=== PATIENT | female | born 1990 | race Hispanic/Latino ===

== ENCOUNTER 2019-01-15 22:17 | Emergency (ER) | payer SELFPAY ==
[2019-01-15 22:59] LABS: #Basophils 0.1 thou/uL (0.0-0.2); #Eosinphils 0.1 thou/uL (0.0-0.7); #Lymphocytes 3.6 thou/uL (1.20-3.40); #Monocytes 0.7 thou/uL (0.11-0.59); #Neutrophils 7.3 thou/uL (1.40-6.50); %Basophils 0.8 % (0.0-1.0); %Eosinophils 0.6 % (0.0-10.0); %Lymphocytes 30.9 % (21.0-51.0); %Monocytes 5.8 % (0.0-10.0); %Neutrophils 61.8 % (42.0-75.0); Hemoglobin 13.1 g/dL (12.0-16.0); Mean Corpuscular HGB CONC 32.5 g/dL (32.0-36.0); Mean Corpuscular Volume 86.3 fL (78.0-98.0); Mean Platelet Volume 9.3 fL (7.4-10.4); Platelet Count 266 thou/uL (130-400); RBC Distribution Width 13.2 % (11.5-14.5); Red Blood Cell (RBC) Count 4.69 mill/uL (4.20-5.40); White Blood Cell (WBC) Count 11.8 thou/uL (4.8-10.8)
[2019-01-15 23:02] LABS: ALT (SGPT) 45 U/L (8-55); AST (SGOT) 27 U/L (5-34); Albumin 4.8 g/dL (3.5-5.0); Alkaline Phosphatase 82 U/L (40-150); Anion Gap 13 mmol/L (10-20); BUN (Urea Nitrogen) 7 mg/dL (7.0-18.7); Bilirubin, Total 0.6 mg/dL (0.2-1.2); Calc. Creatinine Clearance 0 mL/min (70-130); Calcium 9.9 mg/dL (7.8-10.44); Carbon Dioxide 22 mmol/L (22-29); Chloride 105 mmol/L (98-107); Estimated GFR-MDRD 90; Globulin 3.2 g/dL (2.4-3.5); Glucose 92 mg/dL (70-105); Lipase 13 U/L (8-78); Potassium 3.6 mmol/L (3.5-5.1); Sodium 136 mmol/L (136-145)
[2019-01-15 23:38] LABS: Bilirubin Negative (Negative); Blood, Urine Negative (Negative); Clarity CLEAR (Clear); Glucose, Urine (Dipstick) 100 mg/dL (Negative); Leukocyte Negative (Negative); Nitrite Negative (Negative); Protein, Urine (Dipstick) Negative (Neg-Trace); Specific Gravity, Urine 1.027 (1.002-1.036); Urobilinogen 0.2 mg/dL (0.2-1.0)
[2019-01-15 23:47] LABS: Pregnancy Test - Urine (BHCG) POSITIVE (Negative); Pregu Control Background? CLEAR/WHITE (CLR/WHITE); Pregu Control Bar Appear? YES (CONTROL BAR); Specific Gravity 1.027 (1.002-1.036)
--- NOTE | 2019-01-16 08:07 | ULT ---
PRELIMINARY REPORT/[facility]/EMERGENCY AFTER HOURS PROCEDURE: US Duplex Artery or Vein of the Abdominal and/or Reproductive Organs, Limited EXAM DATE/TIME: 01/16/2019 12:28 AM CLINICAL HISTORY: 28 years old, female; Pain and signs and symptoms; Lmp or gestational age (in weeks): 5w0d; Antepartu m complications; complicated by abdominal or pelvic pain; First trimester; ; Patien t HX: Pelvic pain, lower back pain x 1 wk, vaginal bleeding tonight TECHNIQUE: Imaging protocol: Real-time duplex ultrasound scan of the arterial or venous flow of the abdomen and/ or reproductive organs, with color Doppler flow and spectral waveform analysis. COMPARISON: No relevant prior studies available. FINDINGS: Uterus: There is intrauterine gestation. Questionable hypoechoic lesion next to the gestational sac m ay represent subchorionic hemorrhage. Uterus measures 8.6 x 4.5 cm. Endometrial thickness measures 15 mm. Ovaries: RIGHT ovary measures 2.7 x 1.9 x 2.5 cm. normal arterial and venous waveforms. No torsion. N o adnexal mass. LEFT ovary measures 2.9 x 1.9 x 3.7 cm. normal arterial and venous waveforms. No tors ion. No adnexal mass. Other findings: Beta-hCG measures 1407.7. Gestational sac with mean sac diameter corresponds with est imate gestational age of 5 weeks. Yolk sac and pole are not yet visualized probably secondary t o early gestation. IMPRESSION: 1. Tiny gestational sac corresponding with estimated gestational age of 5 weeks with questionable sub chorionic hemorrhage. Followup ultrasound as clinically warranted. 2. No evidence of ovarian torsion or adnexal mass on either side. US First Trimester, Transabdominal and US , Transvaginal EXAM DATE/TIME: 01/16/2019 12:28 AM CLINICAL HISTORY: 28 years old, female; Pain and signs and symptoms; Lmp or gestational age (in weeks): 5w0d; Antepartu m complications; complicated by abdominal or pelvic pain; First trimester; ; Patien t HX: Pelvic pain, lower back pain x 1 wk, vaginal bleeding tonight TECHNIQUE: Imaging protocol: Real-time transabdominal obstetrical ultrasound of the maternal pelvis and a first trimester , less than 14 weeks 0 days, with image documentation. Transvaginal imaging was us ed for better evaluation of the fetus and adnexa. COMPARISON: No relevant prior studies available. FINDINGS: Beta HCG: Beta-hCG measures 1407.7. GESTATION: Gestation: There is intrauterine gestation. Questionable hypoechoic lesion next to the gestational sa c may represent subchorionic hemorrhage. Yolk sac and pole are not yet visualized probably seco ndary to early gestation. BIOMETRY: Estimated gestational age: Gestational sac with mean sac diameter corresponds with estimate gestation al age of 5 weeks. MATERNAL: Uterus: Uterus measures 8.6 x 4.5 cm. Endometrial thickness measures 15 mm. Cervix: Unremarkable. Right adnexa: RIGHT ovary measures 2.7 x 1.9 x 2.5 cm. normal arterial and venous waveforms. No torsi on. No adnexal mass. Left adnexa: LEFT ovary measures 2.9 x 1.9 x 3.7 cm. normal arterial and venous waveforms. No torsion . No adnexal mass. Intraperitoneal: No intraperitoneal free fluid. IMPRESSION: 1. Tiny gestational sac corresponding with estimated gestational age of 5 weeks with questionable sub chorionic hemorrhage. Followup ultrasound as clinically warranted. 2. No evidence of ovarian torsion or adnexal mass on either side. FINAL REPORT EMERGENCY AFTER HOURS PELVIC ULTRASOUND: IMPRESSION: I agree with the preliminary report provided by [facility]. 1. There is a suspected intrauterine gestational sac without identifiable pole or yolk sac. Th e gestational age based upon the mean sac diameter was 5 weeks and 0 days. Clinical age was 7 weeks a nd 1 day. Mean sac diameter was 3.4 mm. Small hypoechoic collection suspected adjacent to the gestati onal sac which may reflect a small amount of subchorionic hemorrhage related to implantation or abort ion in progress. Continued clinical and sonographic follow-up is recommended. 2. Visualized ovaries are within normal limits. Minimal free fluid is seen within the pelvis. POS: BH
== END 2019-01-16 02:18 | disposition home or self-care (01) ==
LOC: ERS 22:17
DX: O99.89 Other specified diseases and conditions complicating pregnancy, childbirth and the puerperium (principal); R10.30 Lower abdominal pain, unspecified; Z3A.01 Less than 8 weeks gestation of pregnancy
CPT/HCPCS: 36415; 76856; 80053; 81003; 81025; 83690; 84702; 85025

== ENCOUNTER 2019-02-01 12:38 | Emergency (ER) | payer MEDICAID ==
[2019-02-01 14:09] LABS: Bilirubin Negative (Negative); Blood, Urine Small (Negative); Clarity CLOUDY (Clear); Glucose, Urine (Dipstick) 100 mg/dL (Negative); Leukocyte Negative (Negative); Nitrite Negative (Negative); Protein, Urine (Dipstick) Negative (Neg-Trace); Specific Gravity, Urine 1.024 (1.002-1.036); Urobilinogen 0.2 mg/dL (0.2-1.0)
[2019-02-01 14:11] LABS: Bacteria/HPF Rare-Few HPF (None Seen); Hyaline Casts/LPF 4-6 HYALINE CAST LPF (0-3 Hyaline); Pathc Cast-AUWi Flag 0.81 (0-2.49)
[2019-02-01] MEDS ORDERED: Ondansetron ODT 4 MG TAB ONE (14:20)
[2019-02-01] MEDS ORDERED: Acetaminophen 500 MG TAB ONE (14:20)
== END 2019-02-01 14:50 | disposition home or self-care (01) ==
LOC: ERS 12:38
DX: O99.511 Diseases of the respiratory system complicating pregnancy, first trimester (principal); J06.9 Acute upper respiratory infection, unspecified; O99.89 Other specified diseases and conditions complicating pregnancy, childbirth and the puerperium; R30.0 Dysuria; Z3A.01 Less than 8 weeks gestation of pregnancy
CPT/HCPCS: 81003; 81015; 87086; 99283; Q0162

== ENCOUNTER 2019-02-11 01:59 | Emergency (ER) | payer MEDICAID ==
[2019-02-11 04:44] LABS: #Lymphocytes 1.3 thou/uL (1.20-3.40); #Monocytes 0.6 thou/uL (0.11-0.59); #Neutrophils 12.7 thou/uL (1.40-6.50); %Basophils 0.3 % (0.0-1.0); %Eosinophils 0.2 % (0.0-10.0); %Lymphocytes 8.9 % (21.0-51.0); %Neutrophils 86.6 % (42.0-75.0); Hemoglobin 13.2 g/dL (12.0-16.0); Mean Corpuscular HGB CONC 33.6 g/dL (32.0-36.0); Mean Corpuscular Hemoglobin 29.2 pg (27.0-31.0); Mean Corpuscular Volume 86.8 fL (78.0-98.0); Mean Platelet Volume 9.2 fL (7.4-10.4); Platelet Count 237 thou/uL (130-400); RBC Distribution Width 13.5 % (11.5-14.5); Red Blood Cell (RBC) Count 4.52 mill/uL (4.20-5.40); White Blood Cell (WBC) Count 14.7 thou/uL (4.8-10.8)
[2019-02-11 04:57] LABS: ALT (SGPT) 32 U/L (8-55); AST (SGOT) 25 U/L (5-34); Albumin 4.3 g/dL (3.5-5.0); Alkaline Phosphatase 81 U/L (40-150); Anion Gap 15 mmol/L (10-20); BUN (Urea Nitrogen) 9 mg/dL (7.0-18.7); Calc. Creatinine Clearance 0 mL/min (70-130); Calcium 9.1 mg/dL (7.8-10.44); Carbon Dioxide 21 mmol/L (22-29); Chloride 102 mmol/L (98-107); Estimated GFR-MDRD Greater than 90; Globulin 3.1 g/dL (2.4-3.5); Glucose 108 mg/dL (70-105); Lipase 6 U/L (8-78); Potassium 3.5 mmol/L (3.5-5.1); Protein, Total 7.4 g/dL (6.0-8.3); Sodium 134 mmol/L (136-145)
[2019-02-11 05:03] LABS: Bilirubin Negative (Negative); Blood, Urine Moderate (Negative); Clarity CLOUDY (Clear); Glucose, Urine (Dipstick) 500 mg/dL (Negative); Leukocyte Trace (Negative); Nitrite Negative (Negative); Protein, Urine (Dipstick) 30 mg/dL (Neg-Trace)
[2019-02-11 05:06] LABS: Bacteria/HPF 1+ HPF (None Seen); Pathc Cast-AUWi Flag 1.63 (0-2.49); RBC/HPF 0-3 HPF (0-3)
[2019-02-11 05:11] LABS: Hyaline Casts/LPF 0-3 HYALINE CAST LPF (0-3 Hyaline)
[2019-02-11] MEDS ORDERED: Famotidine/PF 20 mg/2ml Vial ONE (06:05)
[2019-02-11] MEDS ORDERED: Metoclopramide HCl 10 MG/2 ML VIAL ONE (06:05)
[2019-02-11] MEDS ORDERED: diphenhydrAMINE 50 MG/ML VIAL ONE (06:05)
== END 2019-02-11 10:31 | disposition home or self-care (01) ==
LOC: ERS 01:59
DX: O21.9 Vomiting of pregnancy, unspecified (principal); R19.7 Diarrhea, unspecified; O99.89 Other specified diseases and conditions complicating pregnancy, childbirth and the puerperium; Z3A.01 Less than 8 weeks gestation of pregnancy
CPT/HCPCS: 36415; 80053; 81003; 81015; 83690; 84702; 85025; 86900; 86901; 96365; 96372; 96375; J0500; J1200; J2765; S0028

== ENCOUNTER 2019-02-21 20:48 | Emergency (ER) | payer MEDICAID, OTHER ==
[2019-02-21] MEDS ORDERED: Ondansetron PF 4 MG/2 ML Vial ONE (21:29)
[2019-02-21 21:33] LABS: #Lymphocytes 1.7 thou/uL (1.20-3.40); #Monocytes 0.9 thou/uL (0.11-0.59); #Neutrophils 11.5 thou/uL (1.40-6.50); %Basophils 0.2 % (0.0-1.0); %Eosinophils 0.2 % (0.0-10.0); %Lymphocytes 12.2 % (21.0-51.0); %Monocytes 6.5 % (0.0-10.0); %Neutrophils 80.9 % (42.0-75.0); Hemoglobin 13.2 g/dL (12.0-16.0); Mean Corpuscular HGB CONC 32.5 g/dL (32.0-36.0); Mean Corpuscular Hemoglobin 28.2 pg (27.0-31.0); Mean Corpuscular Volume 86.7 fL (78.0-98.0); Mean Platelet Volume 9.2 fL (7.4-10.4); Platelet Count 245 thou/uL (130-400); RBC Distribution Width 13.3 % (11.5-14.5); Red Blood Cell (RBC) Count 4.69 mill/uL (4.20-5.40); White Blood Cell (WBC) Count 14.2 thou/uL (4.8-10.8)
[2019-02-21 21:56] LABS: ALT (SGPT) 59 U/L (8-55); AST (SGOT) 24 U/L (5-34); Albumin 4.4 g/dL (3.5-5.0); Alkaline Phosphatase 111 U/L (40-150); Anion Gap 16 mmol/L (10-20); BUN (Urea Nitrogen) 8 mg/dL (7.0-18.7); Bilirubin, Total 0.4 mg/dL (0.2-1.2); Calc. Creatinine Clearance 0 mL/min (70-130); Calcium 9.8 mg/dL (7.8-10.44); Carbon Dioxide 21 mmol/L (22-29); Chloride 101 mmol/L (98-107); Estimated GFR-MDRD Greater than 90; Globulin 3.5 g/dL (2.4-3.5); Glucose 102 mg/dL (70-105); Potassium 3.3 mmol/L (3.5-5.1); Protein, Total 7.9 g/dL (6.0-8.3); Sodium 135 mmol/L (136-145)
[2019-02-21 22:20] LABS: Bacteria/HPF 1+ HPF (None Seen); Bilirubin Negative (Negative); Blood, Urine 2+ (Negative); Clarity Turbid (Clear); Glucose, Urine (Dipstick) Greater than 1000 mg/dL (Negative); Leukocyte 500 Leu/uL (Negative); Nitrite Negative (Negative); Protein, Urine (Dipstick) 100 mg/dL (Neg-Trace); RBC/HPF Greater than 50 HPF (0-3); Urobilinogen Normal mg/dL (Less than 2); WBC/HPF Greater than 50 HPF (0-3)
[2019-02-21 22:30] LABS: Yeast-Budding None Seen HPF (None Seen)
[2019-02-21] MEDS ORDERED: cefTRIAXone\\ROCEPHIN 1 GM VIAL ONE (22:37)
--- NOTE | 2019-02-21 22:38 | ULT ---
PELVIC ULTRASOUND WITH DOPPLER: HISTORY: Pelvic pain and left lower quadrant pain. Difficulty urinating and burning with urination. Nausea. No vaginal bleeding. FINDINGS: A single liver intrauterine gestation is seen, with measurements corresponding to an estimated gestat ional age of 9 weeks 6 days and an ANGEL of 09/20/2019. heart rate measures 180 beats per minute . Apollo-rump length measures 3.4 cm. Gestational sac diameter is 3.93 cm. Yolk sac is 0.49 cm. Both ovaries have a normal appearance and demonstrate flow. Bilateral ureteral jets are present with in the urinary bladder. No free fluid is seen in the pelvis. IMPRESSION: Single live intrauterine of 9 weeks 6 days estimated gestational age and estimated date of delivery of 09/20/2009. POS: RICHELLE
[2019-02-21] MEDS ORDERED: Acetaminophen 500 MG TAB ONE (22:47)
== END 2019-02-21 23:34 | disposition home or self-care (01) ==
LOC: ERS 20:48
DX: O23.41 Unspecified infection of urinary tract in pregnancy, first trimester (principal); Z3A.10 10 weeks gestation of pregnancy
CPT/HCPCS: 76856; 80053; 81003; 81015; 85025; 87086; 93976; 96361; 96365; 96375; J0696; J2405

== ENCOUNTER 2019-02-25 16:37 | Emergency (ER) | payer OTHER ==
[2019-02-25] MEDS ORDERED: Morphine 4 MG/ML VIAL ONE (17:11)
[2019-02-25 17:20] LABS: #Basophils 0.1 thou/uL (0.0-0.2); #Eosinphils 0.1 thou/uL (0.0-0.7); #Lymphocytes 2.8 thou/uL (1.20-3.40); #Monocytes 0.4 thou/uL (0.11-0.59); #Neutrophils 6.5 thou/uL (1.40-6.50); %Basophils 0.6 % (0.0-1.0); %Eosinophils 0.8 % (0.0-10.0); %Lymphocytes 28.3 % (21.0-51.0); %Monocytes 4.1 % (0.0-10.0); %Neutrophils 66.2 % (42.0-75.0); Hemoglobin 12.9 g/dL (12.0-16.0); Mean Corpuscular HGB CONC 31.2 g/dL (32.0-36.0); Mean Corpuscular Hemoglobin 27.1 pg (27.0-31.0); Mean Corpuscular Volume 86.8 fL (78.0-98.0); Mean Platelet Volume 9.1 fL (7.4-10.4); Platelet Count 224 thou/uL (130-400); RBC Distribution Width 12.9 % (11.5-14.5); Red Blood Cell (RBC) Count 4.77 mill/uL (4.20-5.40); White Blood Cell (WBC) Count 9.8 thou/uL (4.8-10.8)
[2019-02-25 17:44] LABS: ALT (SGPT) 37 U/L (8-55); AST (SGOT) 23 U/L (5-34); Alkaline Phosphatase 100 U/L (40-150); Anion Gap 15 mmol/L (10-20); BUN (Urea Nitrogen) 8 mg/dL (7.0-18.7); Bilirubin, Total 0.3 mg/dL (0.2-1.2); Calc. Creatinine Clearance 0 mL/min (70-130); Calcium 9.9 mg/dL (7.8-10.44); Carbon Dioxide 21 mmol/L (22-29); Chloride 104 mmol/L (98-107); Estimated GFR-MDRD Greater than 90; Globulin 3.7 g/dL (2.4-3.5); Glucose 109 mg/dL (70-105); Lipase 13 U/L (8-78); Potassium 3.5 mmol/L (3.5-5.1); Protein, Total 7.7 g/dL (6.0-8.3); Sodium 136 mmol/L (136-145)
[2019-02-25 17:50] LABS: Bilirubin Negative (Negative); Blood, Urine Trace (Negative); Clarity Clear (Clear); Glucose, Urine (Dipstick) 300 mg/dL (Negative); Leukocyte Negative Leu/uL (Negative); Mucous/LPF 2+ LPF (<2+); Nitrite Negative (Negative); Protein, Urine (Dipstick) 20 mg/dL (Neg-Trace); Squamous Epithelial 0-3 HPF (0-3); Urobilinogen Normal mg/dL (Less than 2); WBC/HPF 0-3 HPF (0-3)
[2019-02-25 18:06] LABS: Bacteria/HPF None Seen HPF (None Seen)
[2019-02-25] MEDS ORDERED: Ondansetron PF 4 MG/2 ML Vial ONE (18:15)
[2019-02-25] MEDS ORDERED: diphenhydrAMINE 50 MG/ML VIAL ONE (18:18)
[2019-02-25] MEDS ORDERED: Metoclopramide HCl 10 MG/2 ML VIAL ONE (18:18)
== END 2019-02-25 19:30 | disposition home or self-care (01) ==
LOC: ERS 16:37
DX: O20.9 Hemorrhage in early pregnancy, unspecified (principal); O98.511 Other viral diseases complicating pregnancy, first trimester; B00.9 Herpesviral infection, unspecified; Z3A.10 10 weeks gestation of pregnancy
CPT/HCPCS: 51701; 80053; 81003; 81015; 83690; 84702; 85025; 87086; 87252; 96361; 96365; 96375; A4353; J1200; J2270; J2405; J2765

== ENCOUNTER 2019-04-17 18:13 | Observation (INO) | payer MEDICAID, OTHER, SELFPAY ==
[2019-04-17 19:01] LABS: #Eosinphils 0.1 thou/uL (0.0-0.7); #Lymphocytes 3.5 thou/uL (1.20-3.40); #Neutrophils 11.6 thou/uL (1.40-6.50); %Basophils 0.3 % (0.0-1.0); %Eosinophils 0.8 % (0.0-10.0); %Lymphocytes 21.7 % (21.0-51.0); %Monocytes 5.9 % (0.0-10.0); %Neutrophils 71.4 % (42.0-75.0); Hemoglobin 13.5 g/dL (12.0-16.0); Mean Corpuscular HGB CONC 34.6 g/dL (32.0-36.0); Mean Corpuscular Hemoglobin 29.5 pg (27.0-31.0); Mean Corpuscular Volume 85.3 fL (78.0-98.0); Mean Platelet Volume 9.5 fL (7.4-10.4); Platelet Count 252 thou/uL (130-400); RBC Distribution Width 12.9 % (11.5-14.5); Red Blood Cell (RBC) Count 4.58 mill/uL (4.20-5.40); White Blood Cell (WBC) Count 16.3 thou/uL (4.8-10.8)
[2019-04-17 19:22] LABS: ALT (SGPT) 19 U/L (8-55); AST (SGOT) 19 U/L (5-34); Albumin 3.9 g/dL (3.5-5.0); Alkaline Phosphatase 82 U/L (40-150); Anion Gap 15 mmol/L (10-20); BUN (Urea Nitrogen) 6 mg/dL (7.0-18.7); Bilirubin, Total 0.2 mg/dL (0.2-1.2); Calc. Creatinine Clearance 0 mL/min (70-130); Calcium 9.5 mg/dL (7.8-10.44); Carbon Dioxide 18 mmol/L (22-29); Chloride 104 mmol/L (98-107); Estimated GFR-MDRD Greater than 90; Globulin 3.5 g/dL (2.4-3.5); Glucose 128 mg/dL (70-105); Potassium 3.4 mmol/L (3.5-5.1); Protein, Total 7.4 g/dL (6.0-8.3); Sodium 134 mmol/L (136-145)
[2019-04-17] MEDS ORDERED: Meclizine HCl 25 MG TAB ONE (19:57)
[2019-04-17 20:22] LABS: Bilirubin Negative (Negative); Blood, Urine 1+ (Negative); Clarity Turbid (Clear); Glucose, Urine (Dipstick) Greater than 1000 mg/dL (Negative); Leukocyte 25 Leu/uL (Negative); Nitrite Negative (Negative); Protein, Urine (Dipstick) 20 mg/dL (Neg-Trace); Urobilinogen Normal mg/dL (Less than 2)
[2019-04-17 20:24] LABS: Bacteria/HPF 1+ HPF (None Seen)
[2019-04-17] MEDS ORDERED: Acetaminophen 325 MG TAB ONE (21:00)
[2019-04-17 22:31] LABS: Bilirubin Negative (Negative); Blood, Urine Negative (Negative); Clarity Clear (Clear); Glucose, Urine (Dipstick) 200 mg/dL (Negative); Leukocyte Negative Leu/uL (Negative); Nitrite Negative (Negative); Protein, Urine (Dipstick) Negative (Neg-Trace); Urobilinogen Normal mg/dL (Less than 2)
--- NOTE | 2019-04-17 23:46 | PDOC.FPRHP ---
- History of Present Illness Chief Complaint: near passing out History of Present Illness: 28 y/o , @18 wks gestation presented to the ED with palpitation and near syncopal event happening earlier in the evening on 04/17. Pt states she was eating dinner and had to put her head down after her heart started racing and she saw dark spots. She was dizzy, light headed, had ringing in her ears and the room was spinning. She states this has been occurring the past couple of day. She reports not drinking or eating enough the past few days. She has also felt some "tingling" in her Left extremities and weakness in her right hand present for the past X 2 days. Pt denies any vaginal bleeding, vaginal discharge, or LOF. Pt has been feeling nauseous and vomiting daily throughout this . Pt see's Dr. Anand at the [facility]. ED Course: Pt given meclizine and IVF in the ED, without resolution of dizziness. - Allergies/Adverse Reactions Allergies Allergy/AdvReac Type Severity Reaction Status Date / Time amoxicillin Allergy Verified 04/18/19 03:55 - Home Medications Medication Instructions Recorded Confirmed Type Vit37/Iron/Folic Acid 1 tablet PO DAILY 04/18/19 04/18/19 History [Prenata Chewable Tablet] - History PMHx: no known medical problems PSHx: prior emergent , appendectomy, cholecystectomy in 2018, FHx: mother: hypothyroidism, fibromyalgia, mental illnes (schizophrenia, bipolar depression); Father: DM Social: Denies drug, etoh, or tobacco use. - Review of Systems General: reports: fatigue. denies: fever/chills, night sweats Eyes: denies: eye pain, vision changes ENT: denies: nasal congestion, rhinorrhea Respiratory: denies: cough, congestion, shortness of breath Cardiovascular: reports: palpitation. denies: chest pain, edema Gastrointestinal: reports: nausea, vomiting. denies: diarrhea, constipation, abdominal pain, GI bleeding Genitourinary: denies: incontinence, dysuria, polyuria, discharge Skin: denies: rashes, lesions, jaundice Musculoskeletal: reports: arthritis/arthralgias (hip pain). denies: pain, tenderness, stiffness, swelling Neurological: reports: numbness (left sided extremiteis), weakness (right hand) , other (near syncope) - Vital signs BP: 115/72 HR: 83 RR: 22 Tmax: 98.4 Pox: 97% on RA Wt: - Physical Exam Constitutional: NAD, awake, alert and oriented, well developed HEENT: normocephalic and atraumatic, PERRLA, EOMI, conjunctiva clear, no scleral icterus, grossly normal vision, grossly normal hearing, MMM, oropharynx clear, good dention Neck: supple, FROM, trachea midline, no LAD, no JVD, no thyromegaly Chest: no-tender to palpation, no lesions Heart: RRR, normal S1/S2, no murmurs/rubs/gallops, pulses present, no edema Lungs: CTAB, no respiratory distress, good air movement, no rales/rhonchi, no wheezing, no retractions Abdomen: soft, non-tender, bowel sounds present, no masses/distention Musculoskeletal: normal structure, normal tone, ROM grossly normal Neurological: no focal deficit, CN II-XII intact, DTRs 2+ -Neurological: slight decreased sensation to Left upper and lower extremities to light touch. Skin: no rash/lesions, good turgor, capillary refill <2 seconds, no jaundice Heme/Lymphatic: no unusual bruising or bleeding, no purpura, no petechia, no LAD Psychiatric: normal mood and affect, good judgment and insight, intact recent and remote memory FMR H&P: Results - Labs Result Diagrams: 04/18/19 05:59 04/17/19 18:50 Lab results: WBC 16.3 thou/uL (4.8-10.8) H 04/17/19 18:50 Hgb 13.5 g/dL (12.0-16.0) 04/17/19 18:50 Hct 39.1 % (36.0-47.0) 04/17/19 18:50 MCV 85.3 fL (78.0-98.0) 04/17/19 18:50 Plt Count 252 thou/uL (130-400) 04/17/19 18:50 Neutrophils % 71.4 % (42.0-75.0) 04/17/19 18:50 Sodium 134 mmol/L (136-145) L 04/17/19 18:50 Potassium 3.4 mmol/L (3.5-5.1) L 04/17/19 18:50 Chloride 104 mmol/L (98-107) 04/17/19 18:50 Carbon Dioxide 18 mmol/L (22-29) L 04/17/19 18:50 BUN 6 mg/dL (7.0-18.7) L 04/17/19 18:50 Creatinine 0.62 mg/dL (0.6-1.1) 04/17/19 18:50 Glucose 128 mg/dL (70-105) H 04/17/19 18:50 Calcium 9.5 mg/dL (7.8-10.44) 04/17/19 18:50 Total Bilirubin 0.2 mg/dL (0.2-1.2) 04/17/19 18:50 AST 19 U/L (5-34) 04/17/19 18:50 ALT 19 U/L (8-55) 04/17/19 18:50 Alkaline Phosphatase 82 U/L (40-150) 04/17/19 18:50 Serum Total Protein 7.4 g/dL (6.0-8.3) 04/17/19 18:50 Albumin 3.9 g/dL (3.5-5.0) 04/17/19 18:50 Urine Ketones Negative mg/dL (Negative) 04/17/19 22:00 Urine Blood Negative (Negative) 04/17/19 22:00 Urine Nitrite Negative (Negative) 04/17/19 22:00 Ur Leukocyte Esterase Negative Ange/uL (Negative) 04/17/19 22:00 Urine RBC 4-6 HPF (0-3) A 04/17/19 19:50 Urine WBC 4-6 HPF (0-3) A 04/17/19 19:50 Ur Squamous Epith Cells 11-20 HPF (0-3) A 04/17/19 19:50 Urine Bacteria 1+ HPF (None Seen) 04/17/19 19:50 FMR H&P: A/P - Plan 28 y/o F @ 18 weeks gestation admitted to [facility] for treatment and evaluation near syncope most likely caused by mild dehydration. 1. Near syncopal event - No LOC - Decreased PO intake of fluids and food - IV hydration and encouraging more PO fluid intake - Benadryl, Reglan, Zofran to treat dizziness and nausea. 2. IUP @ 18 weeks gestation 3. Paresthesia or left upper and lower extremities - Mild difference in sensation to light touch of upper and lower extremities on left side. - Monitor for improvement 4. Leukocytosis - 16.3 WBC - Repeat CBC in AM Code Status: Full code DVT Ppx: SCD's Diet: regular diet Disposition/LOS: Stable, admitting to observation for less than 2 midnights. FMR H&P: Upper Level - Pertinent history 28 yo female who is approximately 18 weeks presents for evaluation of dizziness and feeling unwell. 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 She reports some tingling in her hands as well as her left lower extremity. Please see information technology intern note above for further information. General: Female appears stated age, NAD HEENT: Moist mucous membranes CV: Regular rate and regular rhythm, no murmurs Respiratory: CTA-bilaterally Abdomen: Soft, nontender, no distention Normoactive BS Extremities: Moving all four symmetrically. No edema Neuro: No focal deficits. Subjective paresthesias to LLE. WNL strength testing Psych: A&O x3. - Plan Date/Time: 04/17/19 4190 I, Coy Arenas MD, have evaluated this patient and agree with findings/ plan as outlined by information technology intern resident. Pertinent changes/additions are listed here. 1. Dehydration - Likely secondary to nausea associated with - IVF as needed - Encourage PO intake 2. Dizziness - Encouraged to obtain compression stockings and take more frequent breaks at work - Monitor for symptom return 3. Leukocytosis - Unknown etiology - Repeat CBC in AM 4. Hyponatremia - Could be due to volume depletion - Repeat in AM 5. , 2nd Trimester - Continue vitamin - Continue routine care and outpatient visits PCP: Dr. Anand at [facility] CODE STATUS: FULL CODE Disposition: Stable, admit for observation services for IVF and monitoring. Addendum - Attending - Attending Attestation Date/Time: 04/19/19 0751 I personally evaluated the patient and discussed the management with Drs. Lopez and Deepa I agree with the History, Examination, Assessment and Plan documented above with any addition or exceptions noted below. Pt also endorses headaches and tinnitus x 2-3d that coincides with the onset of tingling of legs. She also describes tingling of the hands when she sleeps at night. 1. Symptoms suspicious for atypical migraine. -Treat with reglan and benadryl -BP normotensive. Low concern for hypertensive disorder 2. Near syncope -Suspect related to long periods of time on her feet and mild dehydration -Encouraged frequent work breaks and trial of compression stockings when at work -EKG reassuring -Consider echo if this symptoms persist despite conservative treatment 3. Mild dehydration -IVF Dispo: Anticipate < 2midnight stay.
[2019-04-18] MEDS ORDERED: Metoclopramide HCl 10 MG/2 ML VIAL IVP SCH (03:34)
[2019-04-18] MEDS ORDERED: Ondansetron ODT 4 MG TAB PO PRN (03:34)
[2019-04-18] MEDS ORDERED: Acetaminophen 325 MG TAB PO PRN (03:34)
[2019-04-18] MEDS ORDERED: diphenhydrAMINE 25 MG in Sodium Chloride 0.9% 50 ML IVPB SCH (03:34)
[2019-04-18] MEDS: Sodium Chloride 0.9% 1,000 ML IV SCH ×2 (04:14→16:08)
[2019-04-18 06:15] LABS: #Basophils 0.1 thou/uL (0.0-0.2); #Eosinphils 0.2 thou/uL (0.0-0.7); #Lymphocytes 4.1 thou/uL (1.20-3.40); #Neutrophils 10.2 thou/uL (1.40-6.50); %Basophils 0.4 % (0.0-1.0); %Eosinophils 1.3 % (0.0-10.0); %Lymphocytes 26.3 % (21.0-51.0); %Monocytes 6.4 % (0.0-10.0); %Neutrophils 65.5 % (42.0-75.0); Hemoglobin 11.7 g/dL (12.0-16.0); Mean Corpuscular HGB CONC 32.6 g/dL (32.0-36.0); Mean Corpuscular Hemoglobin 28.2 pg (27.0-31.0); Mean Corpuscular Volume 86.4 fL (78.0-98.0); Mean Platelet Volume 9.5 fL (7.4-10.4); Platelet Count 214 thou/uL (130-400); RBC Distribution Width 12.9 % (11.5-14.5); Red Blood Cell (RBC) Count 4.17 mill/uL (4.20-5.40); White Blood Cell (WBC) Count 15.5 thou/uL (4.8-10.8)
[2019-04-18] MEDS ORDERED: Prenatal Vitamin 1 TAB PO SCH (09:00)
[2019-04-18] MEDS ORDERED: Sodium Chloride 0.9% 500 ML IV SCH (11:15)
[2019-04-18 14:13] VITALS: BMI 43.4
[2019-04-18 17:20] VITALS: BP 114/68; TEMP 98.8
== END 2019-04-18 17:55 | disposition home or self-care (01) ==
LOC: ERS 18:13 → 3SW 23:50
PROVIDERS: ADMIT Student in an Organized Health Care Education/Training Program; ATTEND Student in an Organized Health Care Education/Training Program
DX: O99.89 Other specified diseases and conditions complicating pregnancy, childbirth and the puerperium (principal); R55 Syncope and collapse; R42 Dizziness and giddiness; R20.2 Paresthesia of skin; O99.282 Endocrine, nutritional and metabolic diseases complicating pregnancy, second trimester; E86.0 Dehydration; E87.1 Hypo-osmolality and hyponatremia; O99.112 Other diseases of the blood and blood-forming organs and certain disorders involving the immune mechanism complicating pregnancy, second trimester; D72.829 Elevated white blood cell count, unspecified; Z3A.18 18 weeks gestation of pregnancy; Z88.1 Allergy status to other antibiotic agents
CPT/HCPCS: 36415; 51701; 80053; 81003; 81015; 85025; 93005; 96360; 96361; 96365; 96375; A4353; G0378; J1200; J2765; J8597

== ENCOUNTER 2019-08-06 15:32 | Observation (INO) | payer OTHER ==
[2019-08-06] MEDS ORDERED: hydrALAZINE 20 MG/ML VIAL SLOW IVP PRN (16:19)
--- NOTE | 2019-08-06 16:45 | PDOC.FPROB ---
FMR OB H&P: HPI - History of Present Illness Chief Complaint: elevated BP and BG History of Present Illness: 28yo @ 33.6 by 8.2wk sono complicated by genital herpes and A2GDM presents from [facility] for elevated BP and BG. Pt was seen this AM at [facility] and found to have elevated BG 2 hour post prandial at 148 and elevated diastolic BP of 90 on 2 separate readings. Pt with known A2GDM on metformin but admits to missing approx 2 doses per week. Pt checks BG fasting and states is in 70s-80s, 2 hour post-pradials of 120s with occasionally to 140s. Pt states she checks BP at home and systolic is usually in 120s, unsure of diastolic. Pt endorses good movement, no LOF, vaginal bleeding, vaginal discharge. Does endorse occasional PHILLIPS, no vision changes, PHILLIPS is similar to previous PHILLIPS outside and relieved with Tylenol. Denies any fever, chills, CP, SOB, RUQ pain. Pt also endorses lower abdominal pain for past 1-2 weeks. Worse with movement, resolved with rest. Sharp stabbing sensation, mostly originating in lower abdominal/pelvic region, occasionally radiating to back. Not consistent in nature. Tried Tylenol with mild relief. Primary Care Physician: INGRID Anand FMR OB H&P: Current - Care : 3 Para: 1011 Gestational age: 33.6 Due date: 09/18/19 Dating Criteria: 8.2wk sono - OB Labs Blood type: O RH: positive Antibody Screen: negative HIV: negative RPR: negative HepBsAg: negative Rubella: immune Quad screen: unknown (declined) Gonorrhea: negative Chlamydia: negative Pap Smear: NILM 1 hour gtt: 191 A1c: 5.6 H&H: 13.3/38.9 Platelets: 253 Additional labs: HSV Positive Previous Ur Pr/Cr .138 Cr 0.45 24 hr Protein 270 - Anatomy Survey Anatomy survey: Normal anatomy survey although limited by position and maternal body habitus FMR OB H&P: History - Past Medical History PMH: Genital Herpes, active lesion, not on ppx at this time - OB History OB History: previous LTCS 1 spont AB - SUPERINTENDENT METER TESTS History SUPERINTENDENT METER TESTS History: None - Surgical History Sx History: Chloe appey - Social History Social History: Denies tob, illicits, EtOH - Family History Family History: HTN, DM FMR OB H&P: Medications - Current Home Medications: Medication Instructions Recorded Confirmed Type Acetaminophen [Tylenol Regular 650 mg PO Q4H PRN tab 08/07/19 Rx Strength] Vit37/Iron/Folic Acid 1 tablet PO DAILY #30 tab.chew 08/07/19 Rx [Prenata Chewable Tablet] metFORMIN [Glucophage] 500 mg PO BID-WM #60 tab 08/07/19 Rx Allergies/Adverse Reactions: Allergies Allergy/AdvReac Type Severity Reaction Status Date / Time amoxicillin Allergy Hives Verified 08/06/19 16:09 FMR OB H&P: ROS - Review of Systems General: denies: fever/chills, weight/appetite/sleep changes, fatigue Eyes: denies: vision changes, scotomas, floaters ENT: denies: nasal congestion Cardiovascular: reports: edema (chronic throughout ). denies: chest pain, palpitation Respiratory: denies: cough, congestion, shortness of breath Gastrointestinal: reports: abdominal pain (lower abdominal pain as described in HPI). denies: nausea, vomiting, diarrhea, constipation Genitourinary (Female): denies: incontinence, dysuria, vaginal discharge, vaginal pain, contractions, vaginal pressure Neurologic: denies: weakness Integumentary: denies: rash FMR OB H&P: Vital Signs - Maternal Vital signs: BP 126/76, HR 123, T 98.4, RR 18 - Heart Tones Baseline: 140 (reactive) Variability: moderate Acceleration: present Deceleration: absent Category: category 1 [place] contractions every: sparse FMR OB H&P: Physical Exam - Physical Exam General: NAD, awake, alert and oriented (lying comfortably in bed) HEENT: MMM Neck: supple Heart: RRR, normal S1/S2, no murmurs/rubs/gallops, pulses present, other (1+ non -pitting edema to ankles, pulses 2+ dorsalis pedis) General: CTAB, no respiratory distress, good air movement, no rales/rhonchi, no wheezing Abdomen: soft, gravid, bowel sound present, other (mildly TTP over BL lower abdomen, no rebound or guarding. Worse with positional changes.) Musculoskeletal: normal gait and station Neurological: no focal deficit Skin: no rash Lymphatic: no unusual bruising or bleeding Psychiatric: intact recent and remote memory, good judgement and insight, normal mood and affect FMR OB H&P: A/P - Problem List (1) Gestational diabetes Current Visit: Yes Status: Acute Code(s): O24.419 - GESTATIONAL DIABETES MELLITUS IN , UNSP CONTROL Qualifiers: Gestational diabetes mellitus control: oral hypoglycemic-controlled Trimester: third trimester Qualified Code(s): O24.415 - Gestational diabetes mellitus in , controlled by oral hypoglycemic drugs (2) Elevated BP without diagnosis of hypertension Current Visit: Yes Status: Acute Code(s): R03.0 - ELEVATED BLOOD-PRESSURE READING, W/O DIAGNOSIS OF HTN (3) Genital herpes affecting Current Visit: Yes Status: Chronic Code(s): O98.319 - OTH INFECT W SEXL MODE OF TRANSMISS COMP PREG, UNSP TRI; A60.09 - HERPESVIRAL INFECTION OF OTHER UROGENITAL TRACT Qualifiers: Trimester: third trimester Qualified Code(s): O98.313 - Other infections with a predominantly sexual mode of transmission complicating , third trimester; A60.09 - Herpesviral infection of other urogenital tract (4) Current Visit: Yes Status: Acute Qualifiers: Weeks of gestation: 34 weeks Qualified Code(s): Z3A.34 - 34 weeks gestation of Disposition: 28yo @ 33.6 by 8.2wk sono complicated by genital herpes and A2GDM presents from [facility] for elevated BP and BG. #Elevated BP at clinic - H/o "white coat HTN," ambulatory readings SBP 120s per pt - Diastolic BP 90 x2 in clinic today - Previous PreE labs negative with Pr/Cr 0.138, AST 23, Plt 262, Cr 0.45 - Initial BP 126/76. Will cont to monitor with serial BP monitoring - Cat 1 strip, accels, no deccels, baseline 140, moderate variability, sparse contractions - Pre E labs ordered, including CBC, CMP, UA, Ur Pr and Cr - monitor BPs overnight #A2GDM with elevated PP BG at clinic - Failed 2hr GTT - On metformin 500mg daily, admits to missing 1-2 doses per week - Pt states fasting BG 70s-80s and PP 120s-140s but has not brought log in for clinic visits. BG elevated to 148 today - Will admit for BG monitoring and appropriate medication titration #Third Trimester - @ 33.6 by 8.2wk sono - MFM recs of delivery at 38-39wks, desires rLTCS #Genital Herpes - Will need ppx at 36wks - Plan for rLTCS Dispo: Admit to antepartum obs for BG monitoring. PreE labs pending. Monitor BG and BP. Anticipate hospitalization <48hrs. Discussion: Date/Time: 08/06/19 9298 This H&P was discussed with Dr. Guadalupe and Dr. Suárez who agree with the above documentation and plan. Signature: I have evaluated the above H&P and made edits to the communications marketing intern resident note as indicated. In brief this is a 28 yo at 33.6 WGA with complicated by HSV1, A2GDM, Elevated BPs w/o diagnosis of gHTN, and depression. She has been noncompliant with metformin as well as logging blood sugars. She will be admitted for blood glucose monitoring and med titration. Addendum - Attending - Attending Attestation Date/Time: 08/07/19 4002 I personally evaluated the patient and discussed the management with Dr. Jamey Mullen on 08/06/2019 I agree with the History, Examination, Assessment and Plan documented above with any addition or exceptions noted below - 28 yo @ 33.6 weeks with A2 DM sent from clinic secondary to elevated BP as well as uncontrolled BG. (+) FM. Denies any ctx, LOF, VB. Afebrile VSS. Exam repeated by me and agree with resident's findings. A/P: 1) IUP @33.6 weeks with A2 DM - will place in obs; monitor fasting and 2 hour postprandial glucoses. Increase metformin to BID, 2) Elevated BP - will check Pre-E labs and monitor serial BP
[2019-08-06] MEDS ORDERED: Acetaminophen 325 MG TAB PO PRN (17:13)
[2019-08-06 17:46] LABS: Bilirubin Negative (Negative); Blood, Urine Trace (Negative); Glucose, Urine (Dipstick) 200 mg/dL (Negative); Leukocyte 500 Leu/uL (Negative); Nitrite Negative (Negative); Protein, Urine (Dipstick) 30 mg/dL (Neg-Trace); Urobilinogen Normal mg/dL (Less than 2)
[2019-08-06 17:52] LABS: Clarity Slightly Cloudy (Clear)
[2019-08-06 17:55] LABS: Bacteria/HPF 2+ HPF (None Seen); Creatinine, Urine 117.11 mg/dL (47-110); RBC/HPF 0-3 HPF (0-3)
[2019-08-06 17:56] LABS: Urine Culture Reflex No No
[2019-08-06 17:58] LABS: Hemoglobin 12.3 g/dL (12.0-16.0); Mean Corpuscular Hemoglobin 25.7 pg (27.0-31.0); Mean Platelet Volume 11.5 fL (7.4-10.4); Platelet Count 183 thou/uL (130-400); RBC Distribution Width 14.2 % (11.5-14.5); White Blood Cell (WBC) Count 12.9 thou/uL (4.8-10.8)
[2019-08-06] MEDS ORDERED: metFORMIN 500 MG TAB PO SCH (18:15)
[2019-08-06 18:38] LABS: HIV (1/2) Antibody/Antigen Non-Reactive (NonReactive); HIV 1/2 INDEX 0.08 S/CO (<1.00)
[2019-08-06 18:38] LABS: ALT (SGPT) 20 U/L (8-55); AST (SGOT) 27 U/L (5-34); Albumin 3.3 g/dL (3.5-5.0); Alkaline Phosphatase 320 U/L (40-110); Anion Gap 15 mmol/L (10-20); BUN (Urea Nitrogen) 5 mg/dL (7.0-18.7); Bilirubin, Total 0.5 mg/dL (0.2-1.2); Calc. Creatinine Clearance 208 mL/min (70-130); Carbon Dioxide 17 mmol/L (22-29); Chloride 106 mmol/L (98-107); Estimated GFR-MDRD Greater than 90; Glucose 75 mg/dL (70-105); Potassium 3.7 mmol/L (3.5-5.1); Protein, Total 6.3 g/dL (6.0-8.3); Sodium 134 mmol/L (136-145)
[2019-08-06 18:39] LABS: Syphilis Antibody Nonreactive (Nonreactive); Syphilis Antibody Index 0.03 S/CO (<1.00 Non-Reactive)
--- NOTE | 2019-08-07 06:45 | PDOC.OBAPN ---
FMR OB AP PN: Sub - Interval History Hospital Day: 2 Chief Complaint: None Indentification: @ 34 WGA Interval History: BPs remained WNLs overnight w/ mildly uncontrolled 2hr PP BG levels. FMR OB AP PN: Obj - Maternal Vital signs: BP: 135/74 HR: 84 RR: 18 Tmax: 98.7F Pox: 97% on RA Wt: 93.44 kg - Heart Tones Wasta contractions every: none FMR OB AP PN: Exam - Physical Exam General: NAD, awake, alert and oriented HEENT: normocephalic and atraumatic, grossly normal vision, grossly normal hearing Neck: supple, FROM Heart: RRR, normal S1/S2 General: CTAB, no respiratory distress, good air movement Abdomen: gravid Musculoskeletal: FROM in all four extremities Neurological: sensation to pain,touch and proprioception grossly normal, no focal deficit Skin: no rash, good tugor Psychiatric: intact recent and remote memory, good judgement and insight, normal mood and affect FMR OB AP PN: Data - Labs Lab results: Laboratory Results - last 24 hr 08/06/19 08/06/19 08/06/19 17:00 17:14 17:14 WBC 12.9 H RBC 4.80 Hgb 12.3 Hct 37.4 MCV 78.0 MCH 25.7 L MCHC 33.0 RDW 14.2 Plt Count 183 MPV 11.5 H Sodium 134 L Potassium 3.7 Chloride 106 Carbon Dioxide 17 L Anion Gap 15 BUN 5 L Creatinine 0.60 Estimated GFR (MDRD) Greater than 90 Glucose 75 POC Glucose 74 Calcium 9.0 Total Bilirubin 0.5 AST 27 ALT 20 Alkaline Phosphatase 320 H Serum Total Protein 6.3 Albumin 3.3 L Globulin 3.0 Albumin/Globulin Ratio 1.1 L Urine Color Urine Clarity Urine pH Ur Specific [place] Urine Protein Urine Glucose (UA) Urine Ketones Urine Blood Urine Nitrite Urine Bilirubin Urine Urobilinogen Ur Leukocyte Esterase Urine RBC Urine WBC Ur Squamous Epith Cells Urine Bacteria Hyaline Casts Urine Culture Reflexed U Random Total Protein Urine Creatinine Syphilis IgG/IgM Ab HIV 1&2 Antigen & Ab 08/06/19 08/06/19 08/06/19 17:16 17:16 17:45 WBC RBC Hgb Hct MCV MCH MCHC RDW Plt Count MPV Sodium Potassium Chloride Carbon Dioxide Anion Gap BUN Creatinine Estimated GFR (MDRD) Glucose POC Glucose Calcium Total Bilirubin AST ALT Alkaline Phosphatase Serum Total Protein Albumin Globulin Albumin/Globulin Ratio Urine Color Yellow Urine Clarity Slightly Cloudy Urine pH 5.5 Ur Specific [place] 1.015 Urine Protein 30 A Urine Glucose (UA) 200 A Urine Ketones 20 A Urine Blood Trace A Urine Nitrite Negative Urine Bilirubin Negative Urine Urobilinogen Normal Ur Leukocyte Esterase 500 A Urine RBC 0-3 Urine WBC 7-10 A Ur Squamous Epith Cells 4-6 A Urine Bacteria 2+ A Hyaline Casts 0-3 Urine Culture Reflexed No U Random Total Protein 27 H Urine Creatinine 117.11 H Syphilis IgG/IgM Ab HIV 1&2 Antigen & Ab Non-Reactive 08/06/19 08/06/19 08/07/19 17:45 21:34 06:23 WBC RBC Hgb Hct MCV MCH MCHC RDW Plt Count MPV Sodium Potassium Chloride Carbon Dioxide Anion Gap BUN Creatinine Estimated GFR (MDRD) Glucose POC Glucose 134 H 79 Calcium Total Bilirubin AST ALT Alkaline Phosphatase Serum Total Protein Albumin Globulin Albumin/Globulin Ratio Urine Color Urine Clarity Urine pH Ur Specific [place] Urine Protein Urine Glucose (UA) Urine Ketones Urine Blood Urine Nitrite Urine Bilirubin Urine Urobilinogen Ur Leukocyte Esterase Urine RBC Urine WBC Ur Squamous Epith Cells Urine Bacteria Hyaline Casts Urine Culture Reflexed U Random Total Protein Urine Creatinine Syphilis IgG/IgM Ab Nonreactive HIV 1&2 Antigen & Ab FMR OB AP PN: A/P - Problem List (1) Elevated BP without diagnosis of hypertension Current Visit: Yes Status: Acute Code(s): R03.0 - ELEVATED BLOOD-PRESSURE READING, W/O DIAGNOSIS OF HTN (2) Genital herpes affecting Current Visit: Yes Status: Chronic Code(s): O98.319 - OTH INFECT W SEXL MODE OF TRANSMISS COMP PREG, UNSP TRI; A60.09 - HERPESVIRAL INFECTION OF OTHER UROGENITAL TRACT Qualifiers: Trimester: third trimester Qualified Code(s): O98.313 - Other infections with a predominantly sexual mode of transmission complicating , third trimester; A60.09 - Herpesviral infection of other urogenital tract (3) Gestational diabetes Current Visit: Yes Status: Acute Code(s): O24.419 - GESTATIONAL DIABETES MELLITUS IN , UNSP CONTROL Qualifiers: Gestational diabetes mellitus control: oral hypoglycemic-controlled Trimester: third trimester Qualified Code(s): O24.415 - Gestational diabetes mellitus in , controlled by oral hypoglycemic drugs (4) Current Visit: Yes Status: Acute Qualifiers: Weeks of gestation: 34 weeks Qualified Code(s): Z3A.34 - 34 weeks gestation of Disposition: 28yo @ 34 WGA by 8.2wk sono complicated by genital herpes and A2GDM on metformin who presented from [facility] for elevated BP and BG at a routine follow-up appointment. #Elevated BP at clinic w/o diagnosis of HTN in pregnacy or pre-e: - known h/o "white coat HTN but had diastolic BPs of 90 x2 in clinic yesterday - Pre-E labs negative this admission with Pr/Cr 0.23 but up from first set at 0.138, AST/ALT , Plt 134, Cr 0.60 - all BPs WNLs since admission - Will continue to monitor BPs closely #uncontrolled A2GDM with elevated PP BG at clinic - Failed 2hr GTT & random BG elevated to 148 in clinic yesterday - BG checks thus far have been 70s -130s. Only abnormal read was 134 2 hours after dinner. AM fasting today of 79. - Will continue AM fasting and 2hr PP accuchecks & continue metformin at 500mg BID today w/ close follow-up at [facility] next week. - Will educate on GDM diet and continue weekly testing with MFM. #Third Trimester - @ 34 WGA by 8.2wk sono - MFM recs of delivery at 38-39wks, desires rLTCS - Continue PNVs #Genital Herpes - Will need ppx at 36wks - Plan for rLTCS Dispo: Will continue to monitor BG and BPs closely. Anticipate likely d/c home later today with close follow-up with [facility] next week. Discussion: Date/Time: 08/07/19 0642 This H&P was discussed with Dr. Suárez who agrees with the above documentation and plan. Addendum - Attending - Attending Attestation Date/Time: 08/07/19 0936 I personally evaluated the patient and discussed the management with Dr. Cohn I agree with the History, Examination, Assessment and Plan documented above with any addition or exceptions noted below - Patient without complaints. (+)FM Afebrile VSS. A/P: 1) IUP @34 weeks with A2 GDM - elevated postprandial glucoses. Continue increased dose of metformn. Discussed importance of monitoring BG for wellbeing. Patient verbalized understanding. Discussed using a phone mikey to track BG. Patient interested and will look for an mikey. Will plan to d/c home later this morning. 2) Eleavted BP- all BP normal her in hospital and Pre-E labs negative.
[2019-08-07] MEDS ORDERED: metFORMIN 500 MG TAB PO SCH (08:00)
[2019-08-07] MEDS ORDERED: Prenatal Vitamin 1 TAB PO SCH (09:00)
[2019-08-07 09:29] VITALS: BP 124/73; TEMP 99.1
--- NOTE | 2019-08-08 10:02 | DIS ---
DATE OF ADMISSION: 08/06/2019 DATE OF DISCHARGE: 08/07/2019 RESIDENT: Dr. Bren Cohn. ADMITTING ATTENDING: Dr. Malinda Suárez. DISCHARGE ATTENDING: Dr. Malinda Suárez. CONSULTS: None. PROCEDURES: None. PRIMARY DIAGNOSIS: Uncontrolled A2 gestational diabetes. SECONDARY DIAGNOSES: 1. Third trimester . 2. History of HSV-1 infection. DISCHARGE MEDICATIONS: 1. vitamins one p.o. daily. 2. Metformin 500 mg p.o. b.i.d. with meals. 3. Acetaminophen 650 mg p.o. q.4 hours p.r.n. DISCONTINUED MEDICATIONS: Metformin 500 mg p.o. q.a.m. with meals. HOSPITAL COURSE: The patient is a 28-year-old, G3, P1-0-1-1 at 33.6 weeks gestational age by 8.2 weeks' sonogram consistent with her LMP, who was sent for direct admission after being found to have an elevated blood pressure and blood glucose level at the clinic earlier that day. Of note, the patient had been noted to have a 2-hour postprandial blood glucose level of 148 and 2 elevated diastolic blood pressures in the 90s in clinic and was, therefore, sent for direct admission for a pre-eclapmsia rule-out evaluation and close monitoring of her blood pressure and blood glucose levels. On presentation to [facility], the patient's vitals were noted to be within normal limits, including her blood pressure, but a work-up for preeclampsia was initiated and a CBC, CMP, and urine protein creatinine ratio were obtained. Overnight, the patient's blood pressures remained within normal limits and, by the following morning, the patient's labwork was reviewed and was noted to be within normal limits with normal platelets at 143, liver function tests in the 20s, a urine protein creatinine ratio of 0.23, and a creatinine of 0.60. All blood pressure readings remained within normal limits for her entire hospital stay as well. Regarding her gestational diabetes, the patient's a.m. fasting levels remained controlled during her hospitalization, but her 2-hour postprandial following dinner was elevated at 134. She was, therefore, discharged on the increased dose of metformin at 500 b.i.d. and counseled again on the importance of diet and exercise in conjunction with medication adherence to control her blood sugars and instructed to follow up at clinic within 1 week of discharge. DISPOSITION: Stable. DISCHARGE INSTRUCTIONS: 1. Location: Home. 2. Diet: Consistent carb diet. 3. Activity: As tolerated, no restrictions. 4. Followup: The patient was instructed to follow up with clinic within 1 week of discharge. Job ID: [id number] MTDAlia
== END 2019-08-07 10:45 | disposition home health service (06) ==
LOC: L&D/OP 15:32 → 3SW 17:25
PROVIDERS: ADMIT Family Medicine; ATTEND Family Medicine
DX: O99.89 Other specified diseases and conditions complicating pregnancy, childbirth and the puerperium (principal); R03.0 Elevated blood-pressure reading, without diagnosis of hypertension; O98.313 Other infections with a predominantly sexual mode of transmission complicating pregnancy, third trimester; A60.09 Herpesviral infection of other urogenital tract; O24.415 Gestational diabetes mellitus in pregnancy, controlled by oral hypoglycemic drugs; O34.211 Maternal care for low transverse scar from previous cesarean delivery; O09.293 Supervision of pregnancy with other poor reproductive or obstetric history, third trimester; Z3A.33 33 weeks gestation of pregnancy; Z79.84 Long term (current) use of oral hypoglycemic drugs; Z91.14 Patient's other noncompliance with medication regimen; Z88.0 Allergy status to penicillin
CPT/HCPCS: 36415; 36416; 51701; 59025; 80053; 81001; 82570; 84156; 85027; 86780; 87389; 99285; A4353; G0378

== ENCOUNTER 2019-08-20 10:25 | Day surgery (SDC) | payer OTHER ==
[2019-08-20 10:55] VITALS: BMI 45.8
[2019-08-20] MEDS ORDERED: hydrALAZINE 20 MG/ML VIAL SLOW IVP PRN (11:00)
--- NOTE | 2019-08-20 11:06 | PDOC.FPROB ---
FMR OB H&P: HPI - History of Present Illness Chief Complaint: R/o contractions/active labor Indentification: 28yo at 35.6wks by 8.2wk US History of Present Illness: Ms. Leidy Askew is a 28 y.o at 35.6 weeks gestation that presents due to sudden onset of "abdominal pressure" this am. She was going to the restroom when she suddenly felt a 10/10 constant pressure in her pelvis that felt like she needed to go to the restroom again. Reports feeling the pressure radiate to her stomach and to her lower back. She did not take anything for the pain and that it was aggravated by walking and when she used a heating pad. Was evaluated at the clinic where she was checked and found to be having contractions 15 min apart with the cervix closed, sent over for concern for labor. While there she reports 1x episode of vomiting. Reports home BPs have been "normal." Hx of gDM, reports fasting glucose 70 and 2hr PP 110. Reports positive movement and denies any bleeding, leakage of fluid, vision changes, headaches, swelling, UTI sxs. Primary Care Physician: Dr Lexi Anand FMR OB H&P: Current - Care : 3 Para: 1010 Gestational age: 35.6 Due date: 09/18/18 Dating Criteria: 8.2wk US Total weight gain: 9lb Course/Complications: gHTN, A2gDM on Metformin, Herpes 1 starts ppx tomorrow. FMR OB H&P: Medications - Current Home Medications: Medication Instructions Recorded Confirmed Type Vit37/Iron/Folic Acid 1 tablet PO DAILY #30 tab.chew 08/07/19 08/20/19 Rx [Prenata Chewable Tablet] metFORMIN [Glucophage] 500 mg PO BID-WM #60 tab 08/07/19 08/20/19 Rx Metronidazole [metroNIDAZOLE] 500 mg PO BID #14 tab 08/20/19 Rx Miconazole 2% Vaginal Cream 1 appful VG HS #7 tube 08/20/19 Rx [Monistat 7 Vaginal 2% Cream] Allergies/Adverse Reactions: Allergies Allergy/AdvReac Type Severity Reaction Status Date / Time amoxicillin Allergy Hives Verified 08/20/19 10:53 FMR OB H&P: ROS - Review of Systems General: denies: fever/chills Eyes: denies: vision changes, double vision, scotomas, floaters FMR OB H&P: Vital Signs - Heart Tones Baseline: 130 Variability: moderate Acceleration: present Deceleration: absent Category: category 1 FMR OB H&P: Physical Exam - Physical Exam General: NAD, awake, alert and oriented HEENT: normocephalic and atraumatic, MMM, conjunctiva clear, no scleral icterus , grossly normal hearing, oropharynx clear Neck: supple, trachea midline Heart: RRR, no murmurs/rubs/gallops General: CTAB, no respiratory distress Abdomen: soft, gravid, non-tender, bowel sound present Musculoskeletal: pulses present, FROM in all four extremities, no misalignment/ asymmetry, no atrophy Neurological: no focal deficit Skin: no rash Lymphatic: no unusual bruising or bleeding Psychiatric: intact recent and remote memory, good judgement and insight, normal mood and affect - Pelvic Exam Vulva: normal hair distribution, no lesions SVE: c/t/h FMR OB H&P: A/P Disposition: 28yo at 35.6wks by 8.2wk US presents for rule out labor and preE workup sIUP with contractions - prior C/S - c/t/h in clinic with recheck 2hrs later here unchanged - Demario every 15min on monitor - Will give 1L LR - GBS swab obtained Elevated BP - 138/90 in clinic. BP elevated since 9wk visit in clinic - Baseline Urine pro/cr: 270, 296 last week - Baseline labs: Cr: 0.45, AST: 23, PLT: 262 - Will recheck urine protein/creatine, CMP and CBC - Ordered 24hr urine - Will admit to obs A2GDM - Taking Metformin BID Primary HSV 1 infection during - Ppx at 36wks Valacyclovir BMI 45 Peripartum depression Discussion: Date/Time: 08/20/19 1102 This H&P was discussed with Dr. De Paz who agrees with the above documentation and plan. Addendum - Attending - Attending Attestation Date/Time: 08/21/19 0821 I personally evaluated the patient and discussed the management with Dr. Roche I agree with the History, Examination, Assessment and Plan documented above with any addition or exceptions noted below. PT has had normal bp during her stay and evaluations. Pt given hydration and sedation. No evidence of labor or worsening si/sx of ghtn.
[2019-08-20] MEDS ORDERED: Lactated Ringer's 1,000 ML IV SCH (11:30)
[2019-08-20] MEDS ORDERED: Ondansetron PF 4 MG/2 ML Vial IVP PRN (11:42)
[2019-08-20] MEDS ORDERED: Promethazine HCl 25 MG/ML VIAL IM PRN (11:42)
[2019-08-20] MEDS ORDERED: Morphine 4 MG/ML VIAL IM SCH (11:45)
[2019-08-20] MEDS ORDERED: Ondansetron ODT 4 MG TAB SL SCH (11:45)
[2019-08-20] MEDS ORDERED: Morphine 4 MG/ML VIAL SLOW IVP SCH (11:45)
[2019-08-20 13:06] LABS: #Basophils 0.1 thou/uL (0.0-0.2); #Eosinphils 0.1 thou/uL (0.0-0.7); #Lymphocytes 3.8 thou/uL (1.20-3.40); #Monocytes 0.9 thou/uL (0.11-0.59); #Neutrophils 9.5 thou/uL (1.40-6.50); %Basophils 0.7 % (0.0-1.0); %Eosinophils 0.7 % (0.0-10.0); %Lymphocytes 26.1 % (21.0-51.0); %Monocytes 6.4 % (0.0-10.0); %Neutrophils 66.1 % (42.0-75.0); Hemoglobin 12.5 g/dL (12.0-16.0); Mean Corpuscular HGB CONC 33.1 g/dL (32.0-36.0); Mean Corpuscular Hemoglobin 25.6 pg (27.0-31.0); Mean Corpuscular Volume 77.2 fL (78.0-98.0); Mean Platelet Volume 12.3 fL (7.4-10.4); Platelet Count 198 thou/uL (130-400); RBC Distribution Width 14.8 % (11.5-14.5); Red Blood Cell (RBC) Count 4.91 mill/uL (4.20-5.40); White Blood Cell (WBC) Count 14.4 thou/uL (4.8-10.8)
[2019-08-20 13:09] LABS: ALT (SGPT) 16 U/L (8-55); AST (SGOT) 24 U/L (5-34); Albumin 3.3 g/dL (3.5-5.0); Alkaline Phosphatase 348 U/L (40-110); Anion Gap 14 mmol/L (10-20); BUN (Urea Nitrogen) 6 mg/dL (7.0-18.7); Bilirubin, Total 0.4 mg/dL (0.2-1.2); Calc. Creatinine Clearance 200 mL/min (70-130); Calcium 9.3 mg/dL (7.8-10.44); Carbon Dioxide 19 mmol/L (22-29); Chloride 106 mmol/L (98-107); Estimated GFR-MDRD Greater than 90; Globulin 3.6 g/dL (2.4-3.5); Glucose 85 mg/dL (70-105); Potassium 4.2 mmol/L (3.5-5.1); Protein, Total 6.9 g/dL (6.0-8.3); Sodium 135 mmol/L (136-145)
[2019-08-20 13:12] LABS: Bacteria/HPF 4+ HPF (None Seen); Bilirubin Negative (Negative); Blood, Urine 3+ (Negative); Clarity Turbid (Clear); Glucose, Urine (Dipstick) 300 mg/dL (Negative); Leukocyte 500 Leu/uL (Negative); Nitrite Negative (Negative); Protein, Urine (Dipstick) 100 mg/dL (Neg-Trace); Urobilinogen Normal mg/dL (Less than 2); WBC/HPF 21-50 HPF (0-3)
[2019-08-20 13:15] LABS: Urine Culture Reflex No No
[2019-08-20 14:02] LABS: Large Platelets SLIGHT; MDiff Complete? YES; Microcytosis SLIGHT = 6-15 cells (100X) (0-5/hpf); Platelet Morphology Comment Appears Adequate; Polychromasia SLIGHT = 2-3 cells (100X) (0-2/hpf)
[2019-08-20 14:06] LABS: Creatinine, Urine 184.93 mg/dL (47-110)
--- NOTE | 2019-08-20 21:28 | DIS ---
DATE OF ADMISSION: 08/20/2019 DATE OF DISCHARGE: 08/20/2019 ADMITTING DIAGNOSES: 1. Pelvic pain. 2. Elevated blood pressures with a diagnosis of gestational hypertension. DISCHARGE DIAGNOSES: 1. Pelvic pain. 2. Elevated blood pressures with a diagnosis of gestational hypertension. HOSPITAL COURSE: The patient is a 28-year-old female with an intrauterine at 35 weeks and 5 days, who presented to Labor and Delivery after being at clinic for routine visit. She was noted to have some mild range blood pressures and akira with every 15 minutes and was sent here for evaluation. The patient at that time had a closed cervix, thick. Upon presentation, patient's blood pressures have been normal. Her evaluation here included CMP, CBC, urine protein, random protein, VP3, and findings included Jyoti and bacterial vaginosis. Her spot check urine showed protein to creatinine ratio of 0.5. Her CMP was within normal limits. Her CBC showed platelets of 198,000, hemoglobin 12.5, hematocrit 37.9. Over the course of 6 hours, her blood pressures were monitored and found all be within normal limits. Her cervix has remained closed, thick, and high. Fetus is shown baseline in the 120s with moderate long-term variability, positive 15 x 15 accelerations. The patient was given IV hydration and sedation, and spent a good leather parts matcher resting. With her blood pressures remaining normal and no other findings and having room shortages, the patient is being discharged to home to complete her 24-hour urine collection. She has instructions to follow up with clinic. Her primary provider Dr. Anand, resident physician at clinic, will be organizing her scheduled and for her followup visit. The patient's antibiotics, metronidazole, and Monistat 7 have been sent to the Pharmacy. We have attempted to contact the patient by phone, but her phone is not accepting calls at this time. We will attempt again later. Job ID: [id number]
[2019-08-21] MEDS ORDERED: FLU VACC QS2019-20(6MOS UP)/PF 60 MCG/0.5 ML SYRINGE IM ONE (11:30)
== END 2019-08-20 16:15 | disposition home or self-care (01) ==
LOC: L&D/OP 10:25
PROVIDERS: ATTEND Obstetrics & Gynecology
DX: O47.03 False labor before 37 completed weeks of gestation, third trimester (principal); O13.3 Gestational [pregnancy-induced] hypertension without significant proteinuria, third trimester; O24.415 Gestational diabetes mellitus in pregnancy, controlled by oral hypoglycemic drugs; O98.513 Other viral diseases complicating pregnancy, third trimester; B00.9 Herpesviral infection, unspecified; O99.343 Other mental disorders complicating pregnancy, third trimester; F32.9 Major depressive disorder, single episode, unspecified; O34.219 Maternal care for unspecified type scar from previous cesarean delivery; Z3A.35 35 weeks gestation of pregnancy; Z79.84 Long term (current) use of oral hypoglycemic drugs; Z79.899 Other long term (current) drug therapy; Z88.0 Allergy status to penicillin
CPT/HCPCS: 36415; 36416; 80053; 81001; 82570; 84156; 85025; 87081; 87480; 87510; 87660; J2270; Q0162

== ENCOUNTER 2019-08-29 05:27 | Inpatient (IN) | payer OTHER ==
[2019-08-29] MEDS ORDERED: Ondansetron PF 4 MG/2 ML Vial IVP PRN ×3 (05:56→11:02)
[2019-08-29] MEDS ORDERED: Promethazine HCl 25 MG/ML VIAL IM PRN ×3 (05:56→07:08)
[2019-08-29] MEDS ORDERED: hydrALAZINE 20 MG/ML VIAL SLOW IVP PRN ×2 (05:56→11:02)
[2019-08-29] MEDS ORDERED: CEFAZOLIN 2 GM in Premix Bag 1 BAG IVPB SCH (06:00)
[2019-08-29] MEDS ORDERED: Bicitra 30 ML UDCUP PO SCH (06:00)
[2019-08-29 06:28] VITALS: BMI 45.2
[2019-08-29 07:03] LABS: Hemoglobin 11.8 g/dL (12.0-16.0); Mean Corpuscular Hemoglobin 25.9 pg (27.0-31.0); Mean Corpuscular Volume 78.5 fL (78.0-98.0); Mean Platelet Volume 12.2 fL (7.4-10.4); Platelet Count 155 thou/uL (130-400); RBC Distribution Width 15.2 % (11.5-14.5); Red Blood Cell (RBC) Count 4.54 mill/uL (4.20-5.40); White Blood Cell (WBC) Count 12.9 thou/uL (4.8-10.8)
[2019-08-29] MEDS ORDERED: Naloxone HCl 0.4 mg/ml Vial IVP PRN ×2 (07:08)
[2019-08-29] MEDS ORDERED: Promethazine HCl 25 MG/ML VIAL SLOW IVP PRN (07:08)
[2019-08-29] MEDS ORDERED: Promethazine HCl 25 MG SUPP PR PRN (07:08)
[2019-08-29] MEDS ORDERED: Naloxone HCl 0.4 mg/ml Vial IV PRN (07:08)
[2019-08-29] MEDS ORDERED: Ketorolac Tromethamine 30 MG/ML VIAL IVP PRN (07:08)
[2019-08-29] MEDS ORDERED: diphenhydrAMINE 50 MG/ML VIAL IVP PRN (07:08)
[2019-08-29] MEDS ORDERED: Ondansetron HCl/PF 4 MG/2 ML Vial IVP PRN (07:08)
--- NOTE | 2019-08-29 07:12 | PDOC.FPROB ---
FMR OB H&P: HPI - History of Present Illness Chief Complaint: scheduled section Indentification: 28 y/o @ 37.1 WGA by 8.2 wk sono History of Present Illness: Pt reports ctx q2min. Denies vaginal bleeding, d/c, LOF. Endorses movement. Reports vaginal itching for the past couple of days. Reports a lesion on her perineum that she thinks is an ingrown hair. Denies H/A, vision changes, SOB. Reports some RUQ pain, but reports her baby has been kicking her there. Reports BP's have mostly been below 140/90 and that her sugars have been 70s fasting and 110s-110s postprandial. Primary Care Physician: Dr. Anand - Clinic FMR OB H&P: Current - Care : 3 Para: 1011 Gestational age: 37.1 Due date: 09/18/19 Dating Criteria: 8.2 wk sono Course/Complications: A2GDM, pre-eclampsia without severe features, prior - OB Labs Blood type: O RH: positive Antibody Screen: negative HIV: negative RPR: negative HepBsAg: negative Rubella: immune Quad screen: unknown (declined) Gonorrhea: negative Chlamydia: negative Pap Smear: NILM 1 hour gtt: 191 A1c: 5.6 H&H: 13.3/38.9 Platelets: 253 Additional labs: HSV Positive Previous Ur Pr/Cr .138 24 hr Protein 270 Repeat UrPr/Cr 0.49 FMR OB H&P: History - Past Medical History PMH: Genital HSV-1, no active lesions - OB History OB History: previous LTCS 1 spont AB - 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 - Family History Family History: DM, HTN FMR OB H&P: Medications - Current Home Medications: Medication Instructions Recorded Confirmed Type Vit37/Iron/Folic Acid 1 tablet PO DAILY #30 tab.chew 08/07/19 08/29/19 Rx [Prenata Chewable Tablet] metFORMIN [Glucophage] 500 mg PO BID-WM #60 tab 08/07/19 08/29/19 Rx valACYclovir HCl [valACYclovir] 1 tab PO BID 08/29/19 08/29/19 History Allergies/Adverse Reactions: Allergies Allergy/AdvReac Type Severity Reaction Status Date / Time amoxicillin Allergy Hives Verified 08/20/19 10:53 FMR OB H&P: ROS - Review of Systems General: denies: fever/chills, weight/appetite/sleep changes Eyes: denies: vision changes, double vision ENT: denies: nasal congestion, sore throat Cardiovascular: denies: chest pain, edema Respiratory: denies: cough, shortness of breath Gastrointestinal: reports: abdominal pain. denies: nausea, vomiting Genitourinary (Female): reports: contractions. denies: vaginal discharge, vaginal bleeding Musculoskeletal: denies: pain, tenderness Neurologic: denies: numbness, weakness Integumentary: reports: itching (vaginal itching). denies: rash Hematologic/Lymphatic: denies: prolonged or excessive bleeding, enlarged lymph nodes Psychological: denies: depression, anxiety FMR OB H&P: Vital Signs - Maternal Vital signs: Vital Signs - First Documented Temp Pulse Resp BP 97.5 F L 112 H 16 137/99 H 08/29/19 05:28 08/29/19 05:28 08/29/19 05:28 08/29/19 05:28 - Heart Tones Baseline: 135 Variability: moderate Acceleration: present Deceleration: absent Category: category 1 M[place]onn[place] contractions every: 2-4 min FMR OB H&P: Physical Exam - Physical Exam General: NAD, awake, alert and oriented HEENT: MMM, conjunctiva clear, grossly normal vision, grossly normal hearing Neck: supple, FROM Heart: RRR, normal S1/S2, no murmurs/rubs/gallops, pulses present, no edema General: CTAB, no respiratory distress, good air movement, no rales/rhonchi, no wheezing Abdomen: soft, gravid Neurological: no focal deficit Skin: good tugor, capillary refill <2 seconds Lymphatic: no unusual bruising or bleeding, no purpura Psychiatric: intact recent and remote memory, good judgement and insight - Pelvic Exam Deviation from normal: small 1mm lesion that appears like an ingrown hair SVE: closed Presentation: vertex confirmed by bedside sono FMR OB H&P: Results - Labs Lab results: Laboratory Results - last 24 hr 08/29/19 06:50 WBC 12.9 H RBC 4.54 Hgb 11.8 L Hct 35.6 L MCV 78.5 MCH 25.9 L MCHC 33.0 RDW 15.2 H Plt Count 155 MPV 12.2 H FMR OB H&P: A/P - Problem List (1) Current Visit: No Status: Acute Qualifiers: Weeks of gestation: 37 weeks Qualified Code(s): Z3A.37 - 37 weeks gestation of (2) Pre-eclampsia Current Visit: Yes Status: Acute Code(s): O14.90 - UNSPECIFIED PRE-ECLAMPSIA , UNSPECIFIED TRIMESTER Qualifiers: Trimester: third trimester Qualified Code(s): O14.93 - Unspecified pre- eclampsia, third trimester (3) Gestational diabetes Current Visit: No Status: Acute Code(s): O24.419 - GESTATIONAL DIABETES MELLITUS IN , UNSP CONTROL Qualifiers: Gestational diabetes mellitus control: oral hypoglycemic-controlled Trimester: third trimester Qualified Code(s): O24.415 - Gestational diabetes mellitus in , controlled by oral hypoglycemic drugs (4) Genital herpes affecting Current Visit: No Status: Chronic Code(s): O98.319 - OTH INFECT W SEXL MODE OF TRANSMISS COMP PREG, UNSP TRI; A60.09 - HERPESVIRAL INFECTION OF OTHER UROGENITAL TRACT Qualifiers: Trimester: third trimester Qualified Code(s): O98.313 - Other infections with a predominantly sexual mode of transmission complicating , third trimester; A60.09 - Herpesviral infection of other urogenital tract (5) H/O section Current Visit: Yes Status: Acute Code(s): Z98.891 - HISTORY OF UTERINE SCAR FROM PREVIOUS SURGERY Disposition: 1. with h/o section -Admit to L&D -NPO -Consult anesthesia for spinal -Ancef pre-op 2. Pre-eclampsia without severe features Recent urine protein creatinine ratio 0.49 with prior dx of gHTN -Check CBC, CMP -BP not severe range, will monitor post- 3. A2GDM Pt on Metformin 500mg BID -Check fasting glucose this AM -Will need 2hGTT 6 weeks 4. Genital HSV-1 Primary infection during , no active lesions at this time. Pt has been on ppx for the past week -Will monitor baby closely and swab as recommended Admit to L&D and proceed with scheduled section Discussion: Date/Time: 08/29/19711 This H&P was discussed with Dr. Alegre who agrees with the above documentation and plan. Signature: Lexi Anand MD, PGY-3 Addendum - Attending - Attending Attestation Date/Time: 08/30/19912 I personally evaluated the patient and discussed the management with Dr. Anand I agree with the History, Examination, Assessment and Plan documented above with any addition or exceptions noted below. Will proceed with dank section. Glucose at goal. Will monitor closely for progression to severe preeclampsia. Lakia
[2019-08-29] MEDS ORDERED: Communication Order-Pharmacy FS SCH (07:15)
[2019-08-29] MEDS ORDERED: Oxytocin 10 UNITS/ML VIAL ONE ×3 (07:16→08:58)
[2019-08-29] MEDS ORDERED: MORPHINE 5 MG/10 ML PF VIAL ONE (07:16)
[2019-08-29] MEDS ORDERED: ePHEDrine/0.9% NaCl/PF SYRINGE 50 mg/10 ml ONE (07:16)
[2019-08-29] MEDS ORDERED: Ondansetron PF 4 MG/2 ML Vial ONE (07:16)
[2019-08-29 07:27] LABS: ALT (SGPT) 12 U/L (8-55); AST (SGOT) 18 U/L (5-34); Albumin 3.1 g/dL (3.5-5.0); Alkaline Phosphatase 328 U/L (40-110); Anion Gap 15 mmol/L (10-20); BUN (Urea Nitrogen) 7 mg/dL (7.0-18.7); Bilirubin, Total 0.4 mg/dL (0.2-1.2); Calc. Creatinine Clearance 214 mL/min (70-130); Calcium 8.8 mg/dL (7.8-10.44); Carbon Dioxide 16 mmol/L (22-29); Chloride 107 mmol/L (98-107); Estimated GFR-MDRD Greater than 90; Globulin 3.3 g/dL (2.4-3.5); Glucose 99 mg/dL (70-105); Potassium 3.9 mmol/L (3.5-5.1); Protein, Total 6.4 g/dL (6.0-8.3); Sodium 134 mmol/L (136-145)
[2019-08-29 07:44] LABS: Syphilis Antibody Nonreactive (Nonreactive); Syphilis Antibody Index 0.04 S/CO (<1.00 Non-Reactive)
[2019-08-29 07:45] LABS: HBSAg Index 0.14 S/CO (0-0.99); Hep B Surf Ag Non-Reactive S/CO (NonReactive)
[2019-08-29] MEDS ORDERED: Metoclopramide HCl 10 MG/2 ML VIAL ONE (08:35)
[2019-08-29] MEDS ORDERED: Midazolam HCl 2 mg/2 ml Vial ONE ×3 (08:41→18:45)
[2019-08-29] MEDS ORDERED: PHENYLEPHRINE-NS 100 MCG/ML 10 ML SYRINGE ONE ×3 (09:23→20:41)
[2019-08-29] MEDS ORDERED: Rocuronium Bromide 10 MG/ML (10ML VIAL) ONE (09:23)
[2019-08-29] MEDS ORDERED: Succinylcholine Chloride 20 MG/ML 10 ml SYRINGE FS ONE (09:23)
[2019-08-29] MEDS ORDERED: EPINEPHrine 1 MG/10 ML Abboject SYRINGE ONE (09:23)
[2019-08-29] MEDS ORDERED: PROPOFOL 200 MG/20 ML VIAL ONE (09:23)
[2019-08-29] MEDS ORDERED: Acetaminophen 325 MG TAB PO PRN (11:02)
[2019-08-29] MEDS ORDERED: HYDROcodone/Acetaminophen 5/325 mg Tablet PO PRN ×2 (11:02→20:00)
[2019-08-29] MEDS: Ibuprofen 800 MG TAB PO SCH ×2 (12:15→22:09)
--- NOTE | 2019-08-29 12:27 | PDOC.OPDEL ---
OB Operative/Delivery Note Delivery Dr/Surgeon: Dr. Anand with Dr. Dyer, Dr. Medina with Dr. 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 Procedure in Detail: After risks, benefits, and alternatives were explained to the patient, she gave informed consent. Pre-operative antibiotics included Cefazolin 2 gram IV. The patient was taken to the operating room and spinal anesthesia was initiated. She was placed in the supine position with a left tilt and prepped and draped in usual sterile fashion. A Pfannenstiel incision was made with a scalpel and carried down to the level of the fascia which was sharply nicked. The fascial cut was extended bilaterally with Cooley scissors. The inferior and superior edges of the cut fascial edges were elevated with Emmy clamps and the underlying rectus muscles were sharply and bluntly dissected free. The was omentum noted to be adhesed to the fascia and rectus. A vessel was noted at this transition in the midline that was cauterized with the bovie. The recti were divided digitally and retracted manually. The peritoneum was entered bluntly and retracted manually. Simona O retractor was placed. A low transverse score was made with the scalpel and the uterus was entered in the midline bluntly. Clear fluid was seen. The hysterotomy was extended manually in a cephalocaudal fashion. The was noted to be vertex and was easily delivered by fundal pressure. Mouth and nares were bulb suctioned. Cord clamped and cut and grossly normal male was handed to waiting nurse. Cord blood was obtained. Placenta was manually extracted, found to be intact with 3 vessel cord and sent for pathology. The endometrium was curetted with a dry lap. The uterus was closed with a running locking #1 Monocryl suture. Following this hemostasis was noted. The simona o retractor was removed. The abdomen was inspected and clots were removed. The hysterotomy was again noted to be hemostatic. The rectus was examined and no bleeding was noted. The adhesed omentum had one oozing area that was cauterized with the bovie. The fascia was closed with a running non-locking 0-PDS suture. The subcutaneous tissue was irrigated and there were no bleeders. The skin was undermined on the inferior aspect for better approximation. The skin was approximated with beth and a Anh wound vac was placed. All counts were correct. The patient tolerated the procedure well and was taken to the recovery room in stable condition. Estimated Blood Loss: 500 ml QBL 425 mL with 75 mL in recovery Complications: None Specimens: Cord blood sent to lab for blood type and placenta sent for pathology. Findings: Grossly normal male infant went to NICU initially for respiratory distress. Grossly normal placenta sent to pathology. Drains: Villasenor to gravity draining clear urine Attending Note: I was present and participated in the above documented procedure. Initially MD had difficulty getting through fasical layer and dissecting fasica from rectus muscles due to extensive scarring. No evidence of bleeding. Remainder of dissection to uterus complicated by continued blocking of field with omentum. Male infant delivered without complications. Passed off to nursery team. Infant's respiratory status declined and fredy called. APGARs 6/ 9. See fredy note for interventions performed. Hysterotomy closed without complications. Hemostatic. After closure patients anesthesia began to wear off. Pain was experienced. Anesthesia quickly maintained pain control. Difficulty again with fascial layer due to continued obstruction of surgical field with omentum. Some small areas of bleeding on omentum were bovied with good hemostasis noted. After fascial closure good hemostasis again noted. Skin with scaring. Undermined and beth placed for closure. Wound vac placed due to body habitus and previous wound complications. Continue routine recover. OBL as above. ABrayMD Post delivery plan: routine recovery
[2019-08-29] MEDS ORDERED: Fluconazole 100 MG TAB PO SCH (13:30)
[2019-08-29] MEDS ORDERED: Iopamidol-370 76% 500 ML 1 ML ONE (14:19)
--- NOTE | 2019-08-29 14:56 | PDOC.PP ---
Post Progress Note Post Day #: 0 Subjective: 4 HOUR POST- EXAM Pt states that her pain is controlled. She states that she is feeling warm. She denies chest pain, SOB, nausea, or vomiting. She does not report palpitations. PO intake tolerated: no Flatus: no Ambulation: no Vital Signs (12 hours) Temp Pulse Resp BP Pulse Ox 08/29/19 14:10 130 H 18 131/63 98 08/29/19 13:40 97.5 F L 122 H 18 118/64 97 08/29/19 12:40 116 H 16 123/74 97 08/29/19 11:40 98.5 F 120 H 18 127/88 96 08/29/19 05:28 97.5 F L 112 H 16 137/99 H Weight Weight 94.801 kg - Physical Examination General: NAD Cardiovascular: no m/r/g Deviation from normal: no murmurs, tachycardic Respiratory: clear to auscultation bilaterally, non-labored breathing Abdominal: + bowel sounds, lochia, no distention, appropriately TTP Fundus firm & at: umbilicus Psychiatric: A&Ox3, normal affect Result Diagrams: 08/29/19 14:45 08/29/19 06:50 Additional Labs: Post Labs Blood Type O POSITIVE 08/29/19 06:50 Hep Bs Antigen Non-Reactive S/CO (NonReactive) 08/29/19 06:50 (1) H/O section Code(s): Z98.891 - HISTORY OF UTERINE SCAR FROM PREVIOUS SURGERY Status: Acute (2) Gestational diabetes Code(s): O24.419 - GESTATIONAL DIABETES MELLITUS IN , UNSP CONTROL Status: Acute Qualifiers: Gestational diabetes mellitus control: oral hypoglycemic-controlled Trimester: third trimester Qualified Code(s): O24.415 - Gestational diabetes mellitus in , controlled by oral hypoglycemic drugs (3) Genital herpes affecting Code(s): O98.319 - OTH INFECT W SEXL MODE OF TRANSMISS COMP PREG, UNSP TRI; A60.09 - HERPESVIRAL INFECTION OF OTHER UROGENITAL TRACT Status: Chronic Qualifiers: Trimester: third trimester Qualified Code(s): O98.313 - Other infections with a predominantly sexual mode of transmission complicating , third trimester; A60.09 - Herpesviral infection of other urogenital tract - Assessment/Plan This is a 28 yo G3 now P2012 who delivered via rLTCS this morning. Term , delivered -Routine care gHTN -Currently wnl, will monitor A2GDM -ACHS accuchecks, currently appropriate Tachycardia after delivery -Uterus appropriate, normal lochia -Pending hemagram and EKG Addendum - Attending - Attending Attestation Date/Time: 08/29/19 9705 I personally evaluated the patient and discussed the management with Dr. Lopez @1600 Patient seen and examined with resident. Resident called for increased tachycardia. Patient denies any dizziness, increased abdominal pain, N/V. BP 84/52 P130 U/O 100 mL/4 hours (25 mL/hr) Lungs- CTA b/l; CV-tachycardic; Abd- soft; tender diffusely; fundus firm at umbilicus; - minimal lochia; Incision- wound vac in place dressing intact. Pre-op H/H=11.8/35.6 H/H@14:45 = 9.4/28.8. A/P: 1) POD#0 s/p Repeat with tachycardia and hypotension - QBL from xktogfo=081 mL; received 3L fluids during surgery as well as 2 doses ephedrine for low pressures. In recovery patient received 3 L fluids with pitocin and BP were 120-130/70-80s with HR 110-120. Will give additional fluid bolus and closely monitor patient. Repeat H/H @20:00.
[2019-08-29 15:03] LABS: Hemoglobin 9.4 g/dL (12.0-16.0); Mean Corpuscular HGB CONC 32.7 g/dL (32.0-36.0); Mean Corpuscular Hemoglobin 25.2 pg (27.0-31.0); Mean Platelet Volume 12.7 fL (7.4-10.4); Platelet Count 190 thou/uL (130-400); RBC Distribution Width 15.1 % (11.5-14.5); Red Blood Cell (RBC) Count 3.74 mill/uL (4.20-5.40); White Blood Cell (WBC) Count 22.2 thou/uL (4.8-10.8)
[2019-08-29] MEDS: Lactated Ringer's 1,000 ML IV SCH ×3 (15:30→21:55)
[2019-08-29] MEDS ORDERED: Lactated Ringer's 1,000 ML IV SCH (16:00)
--- NOTE | 2019-08-29 18:19 | CT ---
CT abdomen and pelvis with IV contrast HISTORY: Abdominal pain. Swelling. today. FINDINGS: Mild atelectasis at the lung bases. Small amount of free fluid throughout the upper abdomen and throughout the remainder of the abdomen. Fluid within each side of the mid to lower abdomen is of increased density. Some fluid tracks along each broad ligament without expanding hematoma apparent . Small pockets of gas from recent surgery in the anterior abdomen and anterior abdominal wall. Prominence of the uterus consistent with recent /surgery. Gallbladder is surgically absent. Small splenule adjacent to the spleen. Stomach is distended with fl uid. The decompressed IVC related to patient's fluid status. IMPRESSION: Postoperative changes consistent with recent . Blood and free fluid within the a bdomen as detailed above. No expanding hematoma. Findings were called to Dr. Lopez at 1810 hours. Code CR.
--- NOTE | 2019-08-29 18:44 | PRG ---
DATE OF SERVICE: 08/29/2019 OBGYN Preop Note DX: Suspected Hemoperitoneum, unstable vital signs TIME: 1826 hours. Please labelled this as brief INSTRUCTIONAL SERVICES LIBRARIAN consultation with Dr. Kike Gee (Family Medicine). In brief, I was just called by Dr. Gee regarding this patient. About an hour ago, Dr. Malinda Suárez called me that this patient, who was postop from a this morning from the Family Medicine Team, was noted to have newly developed tachycardia in the recovery room with a pulse in the 130s to 140s. She also had some marginal urine output. I immediately recommended a Stat CT scan of the abdomen to look for any evidence of intraabdominal/peritoneal bleeding. That scan has now been performed and it appears, per Dr. Gee and the radiologist's discussion, that there is some free fluid in the patient's abdomen concerning for blood (about 1000ml). It is unclear if the patient is actively bleeding or if this is old hemolyzed blood. Nonetheless, as the patient's pulse is still in the 120s, and blood pressure is in the 90s/50s, and also noted to have oliguria with decreased urine output despite over 9 L of IV fluids, I have recommended re-exploration STAT. I have addressed this with Anesthesia as well. Main OR aware.Getting PRBCs ordered. Dr. Gee will assemble the Family Medicine, OB, Surgical Team, and now will be in the room as surgical consult. I am ready for the OR. FM team obtaining consents. Job ID: [id number] MTDD
[2019-08-29] MEDS ORDERED: Fentanyl 100 MCG/2 ML VIAL ONE (18:45)
--- NOTE | 2019-08-29 18:48 | PDOC.BPN ---
<Terrence Lopez - Last Filed: 08/29/19 18:46> - Brief Progress Note I was paged to the bedside at around 1650. Pt was tachycardic, hypotensive, and feeling more lethargic. She began complaining of SOB, chest pain on the right with some pain in her right arm. Her abdomen was more tender at that time. Lungs were CTAB. Heart was tachycardic , regular rate, no murmurs. This exam was after an additional bolus of LR. We decided to order a STAT CT abdomen/pelvis with IV contrast. Pending results, with adjust treatment plan based on results and clinical progression. Continue O2 via nasal canula and supportive care. <Malinda Suárez - Last Filed: 08/29/19 19:41> Addendum - Attending - Attending Attestation Date/Time: 08/29/191937 I personally evaluated the patient and discussed the management with Dr. Lopez. New symptoms noted of right sided chest pain and SOB. Dr. Villegas called and case reviewed with him and recommended STAT CT abd/pelvis to evaluate for broad ligament hematoma/source of bleeding. Orders placed as well as type and cross for possible transfusion. Continue close monitoring. mixed crop and livestock farmer physician- Dr. Gee also notified of patient and will come re-evaluate.
[2019-08-29 18:52] LABS: Hemoglobin 7.1 g/dL (12.0-16.0); Mean Corpuscular HGB CONC 31.9 g/dL (32.0-36.0); Mean Corpuscular Hemoglobin 24.8 pg (27.0-31.0); Mean Corpuscular Volume 77.8 fL (78.0-98.0); Platelet Count 202 thou/uL (130-400); RBC Distribution Width 15.1 % (11.5-14.5); Red Blood Cell (RBC) Count 2.86 mill/uL (4.20-5.40); White Blood Cell (WBC) Count 20.2 thou/uL (4.8-10.8)
[2019-08-29 19:50] LABS: FSP-Qualitative Normal (Normal); Fibrinogen 376 mg/dL (253-463); INR-International Normal Ratio 1.2; PTT 22.3 SEC (22.9-36.1); Prothrombin Time 14.8 SEC (12.0-14.7)
[2019-08-29 19:51] LABS: D-Dimer Test 1.97 *mcg/mL (0.27-0.43)
[2019-08-29 19:56] LABS: Platelet Count 202 thou/uL (130-400)
[2019-08-29] MEDS ORDERED: Sodium Chloride 0.9% 20 ML ONE (20:01)
--- NOTE | 2019-08-29 20:13 | PDOC.BPN ---
- Brief Progress Note 1800 went to [facility] to check patient, was in CT about [address] Radiology called with read, stated there was fluid in the abdomen Patients vitals were 99/54, pulse 126, she had about 500ml of urine output since her c/s was finished at 0900 this morning patient was AxOx3, she was somnolent but arousable Decision was made to take patient to OR for exploratory lapartomy, R/B/A was discussed with patient and spouse Please see op notes
[2019-08-29] MEDS ORDERED: CCU Electrolyte Replacement 1 EACH IVPB ONE (20:16)
[2019-08-29] MEDS ORDERED: Ventilator Sedation Protocol 1 EACH FS SCH (20:30)
--- NOTE | 2019-08-29 20:37 | PDOC.EVN ---
Event Note - Event Note Event Note: OBGYN postop note Dictated. Quick NOte on "PEA" (unclear): Anesthesia (Dr Sofia) was concerned that the patient may have gone through a brief episode of PEA (which I dictated), but this converted quickly with epi and IV resuscitation. Max, our ROOFING SUPERVISOR, was not sure if it was PEA or if pulses were difficult to check due to her peripheral vasoconstrictioin vs true PEA. Nonetheless, CPR was NOT performed in the OR.
[2019-08-29] MEDS ORDERED: Phenylephrine HCL 10 MG/ML VIAL ONE ×2 (20:39→20:40)
--- NOTE | 2019-08-29 20:46 | CON ---
DATE OF OBGYN INTRAOP CONSULTATION: 08/29/2019 INTRAOPERATIVE SURGICAL CONSULTATION TIME OF INTERVENTION: Roughly 1930 until 2009. LOCATION: OR D. PREOPERATIVE DIAGNOSIS: The patient who is postop about 10 hours or so, who had a earlier this morning with the Family Medicine team and who now has suspected hemoperitoneum, unstable. POSTOPERATIVE DIAGNOSES: 1. The patient who is postop about 10 hours or so, who had a earlier this morning with the Family Medicine team and who now has suspected hemoperitoneum, unstable. 2. Hemoperitoneum of about 1.3 to 1.5 L. SURGEONS: 1. Dr. Kike Gee (). 2. Dr. Lexi Anand ( Resident). 3. Dr. Isaura Hutchinson ( Resident). TEXTILE MACHINERY INSTRUCTOR CONSULT: Myself. OTHER CONSULT: Dr. Reddy with General Surgery for central line placement. IV FLUIDS/BLOOD PRODUCTS: Please see anesthesia and full resident dictation for the list of the major transfusion protocol that was initiated at procedure start. FINDINGS: 1. When the abdomen open, old clotted blood of approximately 800 mL to 1000 mL was noted. 2. Entry into the abdominal pelvic cavity did not find one distinct bleeder. There was an evidence of an old hematoma at the anterior cul-de-sac, but no active bleeding. 3. Exploration of the entire pelvic and abdominal area did not find any omental or vascular bleed. 4. The hysterotomy site was intact. 5. The IP ligaments on both sides were intact. 6. Ovaries were perfused and normal. 7. No rectus muscle bleeding noted. 8. Small amount of venous bleeding on the right peritoneum by the rectus sheath noted, which was rendered hemostatic Avitene technique. PROCEDURE NARRATIVE: I arrived into the OR just as the Family Medicine Team, had gained entry into the abdomen. I was present while the pneumoperitoneum was released from the abdominal cavity. We then put a right angle retractors into the wound for retraction and all of the prior surgical sites were examined. The findings were as above. We did a detailed survey and after confirming that there was no active bleeding noted, the likely etiology of the hemoperitoneum was a vascular/venous bleed that had now tamponaded itself. Once again, we examined the abdominal pelvic area and waited for 5 minutes to see if there was a reaccumulation of blood in the anterior or posterior cul-de-sac as the blood was being given. No further re-collection of hemoperitoneum was seen. After we were all convinced that there were no distinct bleeders, we decided to close the abdomen. Again, I scrubbed out as the primary Family Medicine Team continued the abdominal closure once again. In's and out's, please see the full dictation for the units of blood and for urine output and IV fluid given. DISPOSITION: The patient will go to the ICU for recovery. IMPORTANT NOTE: According to Dr. Saez with anesthesia, the patient seemed to have gone into brief PEA for about 1-2 minutes, but this was caught very quickly and then quickly resolved with epinephrine, IV fluids, and initiation of blood products. Cardiopulmonary resuscitation was not performed. Job ID: [id number] MTDD
--- NOTE | 2019-08-29 20:49 | RAD ---
Chest one view HISTORY: Central line placement. Tip of the endotracheal catheter projects over the right mainstem bronchus. Opacity throughout the le ft lung is likely related to atelectasis, with slight leftward shift of the mediastinum. There is also low volume of the right lung. Tip of a right internal jugular central venous catheter overlies the right atrium. Metallic wire lies over the midline lower neck and may represent an esophageal probe or nasogastric t ube. IMPRESSION: Right mainstem intubation with volume loss of the left lung. Right internal jugular catheter in good radiographic position. Findings were called to Dr. Lopez at 2040 hours. Code CR.
[2019-08-29] MEDS ORDERED: Calcium Gluc 4.6 MEQ/10 ML (100 MG/ML) SLOW IVP SCH (20:54)
[2019-08-29] MEDS ORDERED: Famotidine/PF 20 mg/2ml Vial SLOW IVP SCH (21:00)
--- NOTE | 2019-08-29 21:00 | PDOC.BPN ---
- Brief Progress Note EBL is about 2500ml, there was 1.3L blood evacuated when the abdomen was entered additionally there was about 30 laps PEA event was questionable, pulse was 160 and pulse could not be palpated, resolved with epi, lasted less than 30secs Patient received 1U which was started before surgery and 2U intra-op There is 3U type and crossed Ordered one amp calcium Stat CXR ordered to re-check tube placement
[2019-08-29] MEDS ORDERED: CCU ELECTROLYTE REPLACEMENT PROTOCOL FS PRN (21:04)
[2019-08-29] MEDS ORDERED: Potassium Phosphate 9 MMOL in Sodium Chloride 0.9% 100 ML IVPB PRN (21:04)
[2019-08-29] MEDS ORDERED: Potassium Chloride 40 MEQ in Sodium Chloride 0.9% 250 ML 250 ML IVPB PRN (21:04)
[2019-08-29] MEDS ORDERED: Potassium Phosphate 12 MMOL in Sodium Chloride 0.9% 250 ML 250 ML IV PRN (21:04)
[2019-08-29] MEDS ORDERED: Potassium Phosphate 15 MMOL in Sodium Chloride 0.9% 250 ML 250 ML IV PRN (21:04)
[2019-08-29] MEDS ORDERED: Potassium Chloride 40 MEQ in Premix Bag 1 BAG IVPB PRN (21:04)
[2019-08-29] MEDS ORDERED: PHOS-NAK 1 PKT PACK PO PRN ×2 (21:04)
[2019-08-29] MEDS ORDERED: Magnesium Oxide 400 MG TAB PO PRN ×2 (21:04)
[2019-08-29] MEDS ORDERED: Potassium Chloride 20 MEQ TAB PO PRN (21:04)
[2019-08-29] MEDS ORDERED: Propofol BOLUS 1,000 MG/100 ML VIAL IV PRN (21:05)
[2019-08-29] MEDS ORDERED: fentaNYL Citrate/PF 2,000 MCG in Sodium Chloride 0.9% 60 ML IV SCH (21:05)
[2019-08-29] MEDS ORDERED: Propofol 1,000 MG/100 ML VIAL IV PRN (21:05)
[2019-08-29] MEDS ORDERED: DISCONTINUE PREVIOUS NARCOTIC PAIN MEDICATIONS AND BENZODIAZEPINES FS SCH (21:05)
[2019-08-29] MEDS ORDERED: Lorazepam 2 MG/ML VIAL SLOW IVP PRN (21:05)
[2019-08-29] MEDS ORDERED: Fentanyl BOLUS 250 ML IVPB PRN (21:05)
--- NOTE | 2019-08-29 21:12 | PDOC.OP ---
Operative Note - Operative Note Operative Note: Date of Operation 08/29/2019 Pre-operative Diagnosis: 1. Acute Hemorrhagic Shock 2. Postoperative bleeding 3. s/p section, POD#1 4. PEA, suspected 5. Pre-eclampsia without Severe Features Post-operative Diagnosis: 1. Acute Hemorrhagic Shock 2/2 post-operative intraabdominal bleeding, likely venous 2. Postoperative bleeding 3. s/p section, POD#1 4. PEA, suspected 5. Pre-eclampsia without Severe Features Procedure: exploratory laparotomy through prior pfannenstiel incision Surgeons: Dr. Gee and Dr. Cheng Villegas with NCR OPERATOR, see his dictation for his contribution Assist: Dr. Hutchinson Anesthesia: General anesthesia Consent: Risks and benefits of the procedure discussed with the patient and her and consents were obtained prior to the procedure. History: 28 y/o POD#0 s/p rLTCS indicated for pre-eclampsia without severe features and A2GDM began developing hypotension, tachycardia about 5 hours post-op. She was found to have downtrending Hb to 7.[address] abdomen was performed that showed intraabdominal fluid that was equivocal for post-op changes vs intraabdominal bleeding. The patient decompensated and went into shock. She was started on 1U PRBC's and then taken down to the operating room. Operation in detail: The patient was placed on the operating table and placed under general anesthesia with successful placement of ET tube by anesthesia. She was prepped and draped in the usual fashion. A timeout was performed by the operating room staff. The procedure was started at 1933. The beth were removed from prior pfannenstiel incision. The subcutaneous tissue was noted to have a minimal amount of blood clot and post-op changes. The suture was removed from the fascia with wilhelm scissors and the abdomen was entered. At this time a large clot burden was noted. 800mL blood was immediately evacuated from the abdomen. The patient at this time was noted to be in possible PEA per anesthesia for about 1 minute that resolved with epinephrine. Clots continued to be evacuated from the abdomen by laps and suction in the usual fashion. The hysterotomy was inspected and there was noted to be normal post-op changes around the hysterotomy with a hematoma in the serosa just superior to the bladder. This was inspected thoroughly and there was no active bleeding. The lateral gutters were then inspected and noted to be hemostatic. The posterior aspect of the uterus was inspected and suctioned free of clot and there was no active bleeding noted. The posterior gutter was cleaned out and there was no further pooling of blood. The omentum was inspected and there was blood clot on the omentum, but no active bleeding. There was noted to be a small amount of oozing from the space between the peritoneum and fascia on the patient's right. Wes was placed and this was then noted to be hemostatic. The remainder of the abdomen was inspected and there was no active bleeding noted and no pooling of blood in the abdomen. The fascia was then closed with running, non-locking 0- PDS suture. The subcutaneous tissue was approximated with interrupted 3-0 vicryl suture. The skin was approximated with beth and a Anh wound vac was placed. During the procedure a R IJ central line was placed by general surgery. See their op note for full details. EBL: 1500mL, total post- 2.5L Input: 3U PRBCs, 3U FFP, 2L NS Urine Output: 200mL Findings: No active bleed, suspected source includes ruptured hematoma, now hemostatic vs omental bleed, now hemostatic Specimen: None Disposition: post-operative care in the ICU, pulm has been consulted
--- NOTE | 2019-08-29 21:15 | RAD ---
Chest one view HISTORY: Endotracheal catheter reposition. COMPARISON: Earlier exam on the same date. FINDINGS: Tip of an endotracheal catheter now overlies the thoracic inlet. Pulmonary vasculature is engorged. Left lung has re-aerated somewhat, although bilateral lung volumes remain low. No evidence of pneumothorax. IMPRESSION: Endotracheal catheter in good radiographic position. Continued bilateral low lung volumes.
[2019-08-29] MEDS ORDERED: Calcium Gluc 4.6 MEQ/10 ML (100 MG/ML) SLOW IVP PRN (21:28)
[2019-08-29] MEDS ORDERED: Magnesium Sulfate 20 gm/500 ml 20 GM/500 ML BAG IVPB SCH (21:30)
[2019-08-29] MEDS ORDERED: Magnesium Sulfate 20 GM/WATER 500 ML BAG IVPB SCH (21:30)
[2019-08-29] MEDS ORDERED: Labetalol HCl 100 MG/20 ML VIAL SLOW IVP PRN ×2 (21:32→21:36)
--- NOTE | 2019-08-29 21:36 | PDOC.BPN ---
- Brief Progress Note Patient's BPs are trending in 160s systolic Will start magnesium as indication for delivery at 37 wks was gHTN with superimposed pre-e labetalol PRN for BPs
[2019-08-29] MEDS: Magnesium 2 GM/50 ML 2 GM in Premix Bag 1 BAG IVPB PRN ×2 (21:37→22:28)
[2019-08-29] MEDS ORDERED: Labetalol HCl 100 MG/20 ML VIAL ONE (21:40)
[2019-08-29 21:43] LABS: Actual Bicarbonate (HCO3a) 14.9 mEq/L (22-28); Base Excess (BEa) -13.1 mEq/L (-2.0 to +3.0); CO2 Tension 43.3 mmHg (35.0-45.0); Calcium, Ionized 0.96 mmol/L (1.12-1.30); Carboxyhemoglobin (COHb) 1.3 gm% (0.0-3.0); O2 Tension (PaO2) 127.2 mmHg (80.0-100.0); Potassium - ABG Lab 6.48 mmol/L (3.70-5.30)
[2019-08-29 21:45] LABS: ALV-art Gradient 175.175 (0-20); pH, Arterial 7.16 (7.35-7.45)
[2019-08-29] MEDS ORDERED: Sodium Bicarb 50 MEQ/50 ML VIAL IVP SCH (22:00)
[2019-08-29] MEDS: Docusate Calcium (SURFAK) 240 MG CAP PO SCH (22:04)
[2019-08-29 22:16] LABS: Hemoglobin 8.9 g/dL (12.0-16.0); Mean Corpuscular HGB CONC 33.1 g/dL (32.0-36.0); Mean Corpuscular Hemoglobin 28.5 pg (27.0-31.0); Mean Corpuscular Volume 86.3 fL (78.0-98.0); Red Blood Cell (RBC) Count 3.13 mill/uL (4.20-5.40); White Blood Cell (WBC) Count 22.5 thou/uL (4.8-10.8)
[2019-08-29 22:17] LABS: Mean Platelet Volume 11.6 fL (7.4-10.4); Platelet Count 145 thou/uL (130-400); RBC Distribution Width 15.8 % (11.5-14.5)
[2019-08-29] MEDS ORDERED: Magnesium Sulfate 20 GM in Dextrose 5% in Water 460 ML IV SCH ×2 (22:17→22:30)
[2019-08-29 23:25] LABS: Albumin 2.6 g/dL (3.5-5.0)
[2019-08-29 23:26] LABS: Calcium 7.6 mg/dL (7.8-10.44); Chloride 106 mmol/L (98-107); Sodium 133 mmol/L (136-145)
[2019-08-29 23:27] LABS: Globulin 2.3 g/dL (2.4-3.5); Glucose 130 mg/dL (70-105); Protein, Total 4.9 g/dL (6.0-8.3)
[2019-08-29 23:29] LABS: Anion Gap 13 mmol/L (10-20); Carbon Dioxide 21 mmol/L (22-29)
[2019-08-29 23:30] LABS: Alkaline Phosphatase 192 U/L (40-110); Calc. Creatinine Clearance 162 mL/min (70-130); Estimated GFR-MDRD 89
[2019-08-29 23:31] LABS: BUN (Urea Nitrogen) 8 mg/dL (7.0-18.7)
[2019-08-29 23:32] LABS: AST (SGOT) 33 U/L (5-34)
[2019-08-29 23:33] LABS: ALT (SGPT) 15 U/L (8-55)
[2019-08-29 23:37] LABS: Bilirubin, Total 1.2 mg/dL (0.2-1.2); Potassium 6.7 mmol/L (3.5-5.1)
[2019-08-29 23:38] LABS: Creatinine, Urine 43.51 mg/dL (47-110); Protein, Urine Random Quant Less than 10 mg/dL (1-14)
--- NOTE | 2019-08-30 00:26 | PDOC.BPN ---
- Brief Progress Note Received call from RN that potassium was 6.7. Lab previously reported potassium of 7.1 and redrew the lab. Called lab; both samples were NOT hemolyzed. Reviewed telemetry and appeared to have peaked T waves. Ordered stat EKG. Instructed nurse to give calcium gluconate. Added magnesium lab to blood in lab to assess for magnesium toxicity. Spoke w/ Dr. Guadalupe. Ordered stat BMP. Repeat potassium 5.8. magnesium was 3.5. Amp D50 and insulin given. EKG appeared in NSR without significant T-wave changes.
[2019-08-30 00:40] LABS: Hemoglobin 8.6 g/dL (12.0-16.0); Mean Corpuscular HGB CONC 34.2 g/dL (32.0-36.0); Mean Corpuscular Hemoglobin 28.8 pg (27.0-31.0); Mean Corpuscular Volume 84.2 fL (78.0-98.0); Platelet Count 124 thou/uL (130-400); RBC Distribution Width 15.5 % (11.5-14.5); Red Blood Cell (RBC) Count 2.99 mill/uL (4.20-5.40); White Blood Cell (WBC) Count 17.3 thou/uL (4.8-10.8)
[2019-08-30 00:41] LABS: Platelet Count 124 thou/uL (130-400)
[2019-08-30 00:45] LABS: Fibrinogen 319 mg/dL (253-463)
[2019-08-30 00:46] LABS: INR-International Normal Ratio 1.1; PTT 28.9 SEC (22.9-36.1); Prothrombin Time 14.2 SEC (12.0-14.7)
[2019-08-30 00:47] LABS: D-Dimer Test 3.22 *mcg/mL (0.27-0.43)
[2019-08-30 00:56] LABS: FSP-Qualitative ABNORMAL (Normal); FSP-Semiquantitative >=20 & <40 mcg/mL (Less than 5)
[2019-08-30 01:05] LABS: Anion Gap 14 mmol/L (10-20); BUN (Urea Nitrogen) 9 mg/dL (7.0-18.7); Calc. Creatinine Clearance 166 mL/min (70-130); Calcium 7.5 mg/dL (7.8-10.44); Carbon Dioxide 19 mmol/L (22-29); Chloride 107 mmol/L (98-107); Estimated GFR-MDRD Greater than 90; Glucose 94 mg/dL (70-105); Potassium 5.8 mmol/L (3.5-5.1); Sodium 134 mmol/L (136-145)
[2019-08-30] MEDS ORDERED: Dextrose 5% in Water 1,000 ML IV PRN (01:15)
[2019-08-30] MEDS ORDERED: Dextrose 50% Abboject 50 ML SYRINGE SLOW IVP PRN (01:15)
[2019-08-30] MEDS ORDERED: Dextrose 50 % In Water 50 ML SYRINGE ONE (01:26)
[2019-08-30] MEDS ORDERED: HumaLOG 300 UNITS/3 ML VIAL SC SCH (01:30)
[2019-08-30] MEDS: Lactated Ringer's 1,000 ML IV SCH ×3 (03:13→22:07)
--- NOTE | 2019-08-30 04:38 | PDOC.BPN ---
- Brief Progress Note u/o 75-150ml/hr per nursing staff BPs 100/53 soft abdomen, patient arouses at palpation of abdomen appropriate vaginal bleeding
[2019-08-30 04:41] LABS: Hemoglobin 7.8 g/dL (12.0-16.0); Mean Corpuscular HGB CONC 33.9 g/dL (32.0-36.0); Mean Corpuscular Hemoglobin 28.4 pg (27.0-31.0); Mean Corpuscular Volume 83.7 fL (78.0-98.0); Mean Platelet Volume 12.1 fL (7.4-10.4); Platelet Count 123 thou/uL (130-400); RBC Distribution Width 15.3 % (11.5-14.5); Red Blood Cell (RBC) Count 2.74 mill/uL (4.20-5.40); White Blood Cell (WBC) Count 13.8 thou/uL (4.8-10.8)
[2019-08-30] MEDS ORDERED: Lactated Ringer's 1,000 ML IV SCH (04:53)
[2019-08-30 05:03] LABS: ALT (SGPT) 14 U/L (8-55); AST (SGOT) 32 U/L (5-34); Albumin 2.3 g/dL (3.5-5.0); Alkaline Phosphatase 172 U/L (40-110); Anion Gap 12 mmol/L (10-20); BUN (Urea Nitrogen) 8 mg/dL (7.0-18.7); Bilirubin, Total 0.8 mg/dL (0.2-1.2); Calc. Creatinine Clearance 186 mL/min (70-130); Calcium 7.5 mg/dL (7.8-10.44); Carbon Dioxide 21 mmol/L (22-29); Chloride 107 mmol/L (98-107); Estimated GFR-MDRD Greater than 90; Globulin 2.3 g/dL (2.4-3.5); Glucose 96 mg/dL (70-105); Potassium 4.2 mmol/L (3.5-5.1); Protein, Total 4.6 g/dL (6.0-8.3); Sodium 136 mmol/L (136-145)
[2019-08-30] MEDS ORDERED: Magnesium Sulfate 20 GM in Dextrose 5% in Water 460 ML IV SCH (06:45)
--- NOTE | 2019-08-30 07:16 | PDOC.OBPPN ---
FMR OB PN: Subj - Interval History Hospital Day: 2 Day: 1, POD#1 s/p rLTCS and subsequent wound exploration 28 y/o ->2011 @ 37.1 WGA delivered via rLTCS @ 0817 on 08/29. Pt extubated this AM by Dr. Davenport and reports sore throat. She denies any SOB or chest pain, but does have a cough. She reports abdominal pain. Minimal lochia. Denies N/V/F/C. FMR OB PN: Obj - Maternal Vital signs: BP: 112/74 HR: 101 RR: 19 Tmax: 98.7 Pox: 99% on RA Wt: 100kg - Urine output I&O: 08/29/19 08/30/19 08/31/19 06:59 06:59 06:59 Intake Total 6095 Output Total 2170 Balance 3925 FMR OB PN: Exam - Physical Exam General: NAD, awake, alert and oriented HEENT: normocephalic and atraumatic, EOMI, MMM, conjunctiva clear, no scleral icterus, grossly normal vision, grossly normal hearing Neck: supple, FROM Heart: pulses present Deviation from normal: tachycardic, regular rhythm, no murmurs, trace pitting edema bilaterally Deviation from normal: diffuse rhonchi, worse on R side, no respiratory distress Abdomen: soft, fundus(cm) (firm) Deviation from normal: appropriately tender to palpation Musculoskeletal: FROM in all four extremities Neurological: DTR +1, no clonus, no focal deficit Skin: good tugor, capillary refill <2 seconds : bandage intact (wound vac in place with no leakage), appropriately tender Lymphatic: no unusual bruising or bleeding, no purpura Psychiatric: intact recent and remote memory, good judgement and insight FMR OB PN: Data - Labs Lab results: Laboratory Results - last 24 hr 08/29/19 08/29/19 08/29/19 06:50 06:50 06:50 WBC RBC Hgb Hct MCV MCH MCHC RDW Plt Count MPV PT INR APTT Fibrinogen Fibrin Degrad Products Fibrin Degrad Prod, Qt D-Dimer Specimen Type Puncture Site Bicarbonate Actual ABG pH ABG pCO2 ABG pO2 ABG O2 Sat Calc/Mayur ABG O2 Content ABG Base Excess ABG Hematocrit ABG Hemoglobin ABG Oxyhemoglobin ABG Carboxyhemoglobin ABG Methemoglobin ABG Deoxyhemoglobin Flaco Test A-a O2 Gradient Ionized Calcium Mode of Support Mechanical Rate Inspired O2 Tidal Volume Pressure Support PEEP or CPAP Sodium 134 L Potassium 3.9 Chloride 107 Carbon Dioxide 16 L Anion Gap 15 BUN 7 Creatinine 0.59 L Estimated GFR (MDRD) Greater than 90 Glucose 99 POC Glucose Calcium 8.8 Magnesium Total Bilirubin 0.4 AST 18 ALT 12 Alkaline Phosphatase 328 H Serum Total Protein 6.4 Albumin 3.1 L Globulin 3.3 Albumin/Globulin Ratio 0.9 L U Random Total Protein Urine Creatinine Syphilis IgG/IgM Ab Nonreactive Hep Bs Antigen Non-Reactive Blood Type Antibody Screen Crossmatch 08/29/19 08/29/19 08/29/19 06:50 14:06 14:45 WBC 22.2 H RBC 3.74 L Hgb 9.4 L Hct 28.8 L MCV 77.0 L MCH 25.2 L MCHC 32.7 RDW 15.1 H Plt Count 190 MPV 12.7 H PT INR APTT Fibrinogen Fibrin Degrad Products Fibrin Degrad Prod, Qt D-Dimer Specimen Type Puncture Site Bicarbonate Actual ABG pH ABG pCO2 ABG pO2 ABG O2 Sat Calc/Mayur ABG O2 Content ABG Base Excess ABG Hematocrit ABG Hemoglobin ABG Oxyhemoglobin ABG Carboxyhemoglobin ABG Methemoglobin ABG Deoxyhemoglobin Flaco Test A-a O2 Gradient Ionized Calcium Mode of Support Mechanical Rate Inspired O2 Tidal Volume Pressure Support PEEP or CPAP Sodium Potassium Chloride Carbon Dioxide Anion Gap BUN Creatinine Estimated GFR (MDRD) Glucose POC Glucose 121 H Calcium Magnesium Total Bilirubin AST ALT Alkaline Phosphatase Serum Total Protein Albumin Globulin Albumin/Globulin Ratio U Random Total Protein Urine Creatinine Syphilis IgG/IgM Ab Hep Bs Antigen Blood Type O POSITIVE Antibody Screen NEGATIVE Crossmatch See Detail 08/29/19 08/29/19 08/29/19 16:48 18:35 19:30 WBC 20.2 H RBC 2.86 L Hgb 7.1 L Hct 22.3 L MCV 77.8 L MCH 24.8 L MCHC 31.9 L RDW 15.1 H Plt Count 202 202 MPV 13.0 H PT 14.8 H INR 1.2 APTT 22.3 L Fibrinogen 376 Fibrin Degrad Products Normal Fibrin Degrad Prod, Qt D-Dimer 1.97 H Specimen Type Puncture Site Bicarbonate Actual ABG pH ABG pCO2 ABG pO2 ABG O2 Sat Calc/Mayur ABG O2 Content ABG Base Excess ABG Hematocrit ABG Hemoglobin ABG Oxyhemoglobin ABG Carboxyhemoglobin ABG Methemoglobin ABG Deoxyhemoglobin Flaco Test A-a O2 Gradient Ionized Calcium Mode of Support Mechanical Rate Inspired O2 Tidal Volume Pressure Support PEEP or CPAP Sodium Potassium Chloride Carbon Dioxide Anion Gap BUN Creatinine Estimated GFR (MDRD) Glucose POC Glucose 150 H Calcium Magnesium Total Bilirubin AST ALT Alkaline Phosphatase Serum Total Protein Albumin Globulin Albumin/Globulin Ratio U Random Total Protein Urine Creatinine Syphilis IgG/IgM Ab Hep Bs Antigen Blood Type Antibody Screen Crossmatch 08/29/19 08/29/19 08/29/19 21:13 22:05 22:59 WBC 22.5 H RBC 3.13 L Hgb 8.9 L Hct 27.0 L MCV 86.3 MCH 28.5 MCHC 33.1 RDW 15.8 H Plt Count 145 MPV 11.6 H PT INR APTT Fibrinogen Fibrin Degrad Products Fibrin Degrad Prod, Qt D-Dimer Specimen Type art Puncture Site rra Bicarbonate Actual 14.9 L ABG pH 7.16 L* ABG pCO2 43.3 ABG pO2 127.2 H ABG O2 Sat Calc/Mayur 98.3 H ABG O2 Content 13.9 L ABG Base Excess -13.1 L ABG Hematocrit 29.0 L ABG Hemoglobin 10.0 L ABG Oxyhemoglobin 96.9 ABG Carboxyhemoglobin 1.3 ABG Methemoglobin 0.10 ABG Deoxyhemoglobin 1.7 Flaco Test POSITIVE A-a O2 Gradient 175.175 H Ionized Calcium 0.96 L Mode of Support SIMV Mechanical Rate 16 Inspired O2 50 Tidal Volume 470 Pressure Support 10 PEEP or CPAP 5.0 Sodium 132 L 133 L Potassium 6.48 H 6.7 H* Chloride 108 H 106 Carbon Dioxide 21 L Anion Gap 13 BUN 8 Creatinine 0.78 Estimated GFR (MDRD) 89 Glucose 130 H POC Glucose Calcium 7.6 L Magnesium Total Bilirubin 1.2 AST 33 ALT 15 Alkaline Phosphatase 192 H Serum Total Protein 4.9 L Albumin 2.6 L Globulin 2.3 L Albumin/Globulin Ratio 1.1 L U Random Total Protein Urine Creatinine Syphilis IgG/IgM Ab Hep Bs Antigen Blood Type Antibody Screen Crossmatch 08/29/19 08/29/19 08/30/19 23:11 23:15 00:33 WBC 17.3 H RBC 2.99 L Hgb 8.6 L Hct 25.2 L MCV 84.2 MCH 28.8 MCHC 34.2 RDW 15.5 H Plt Count 124 L MPV 12.0 H PT INR APTT Fibrinogen Fibrin Degrad Products Fibrin Degrad Prod, Qt D-Dimer Specimen Type Puncture Site Bicarbonate Actual ABG pH ABG pCO2 ABG pO2 ABG O2 Sat Calc/Mayur ABG O2 Content ABG Base Excess ABG Hematocrit ABG Hemoglobin ABG Oxyhemoglobin ABG Carboxyhemoglobin ABG Methemoglobin ABG Deoxyhemoglobin Flaco Test A-a O2 Gradient Ionized Calcium Mode of Support Mechanical Rate Inspired O2 Tidal Volume Pressure Support PEEP or CPAP Sodium Potassium Chloride Carbon Dioxide Anion Gap BUN Creatinine Estimated GFR (MDRD) Glucose POC Glucose 150 H Calcium Magnesium Total Bilirubin AST ALT Alkaline Phosphatase Serum Total Protein Albumin Globulin Albumin/Globulin Ratio U Random Total Protein Less than 10 Urine Creatinine 43.51 L Syphilis IgG/IgM Ab Hep Bs Antigen Blood Type Antibody Screen Crossmatch 08/30/19 08/30/19 08/30/19 00:33 00:33 00:33 WBC RBC Hgb Hct MCV MCH MCHC RDW Plt Count 124 L MPV PT 14.2 INR 1.1 APTT 28.9 Fibrinogen 319 Fibrin Degrad Products ABNORMAL H Fibrin Degrad Prod, Qt >=20 & <40 H D-Dimer 3.22 H Specimen Type Puncture Site Bicarbonate Actual ABG pH ABG pCO2 ABG pO2 ABG O2 Sat Calc/Mayur ABG O2 Content ABG Base Excess ABG Hematocrit ABG Hemoglobin ABG Oxyhemoglobin ABG Carboxyhemoglobin ABG Methemoglobin ABG Deoxyhemoglobin Flaco Test A-a O2 Gradient Ionized Calcium Mode of Support Mechanical Rate Inspired O2 Tidal Volume Pressure Support PEEP or CPAP Sodium 134 L Potassium 5.8 H Chloride 107 Carbon Dioxide 19 L Anion Gap 14 BUN 9 Creatinine 0.76 Estimated GFR (MDRD) Greater than 90 Glucose 94 POC Glucose Calcium 7.5 L Magnesium 3.5 H Total Bilirubin AST ALT Alkaline Phosphatase Serum Total Protein Albumin Globulin Albumin/Globulin Ratio U Random Total Protein Urine Creatinine Syphilis IgG/IgM Ab Hep Bs Antigen Blood Type Antibody Screen Crossmatch 08/30/19 08/30/19 04:00 04:00 WBC 13.8 H RBC 2.74 L Hgb 7.8 L Hct 22.9 L MCV 83.7 MCH 28.4 MCHC 33.9 RDW 15.3 H Plt Count 123 L MPV 12.1 H PT INR APTT Fibrinogen Fibrin Degrad Products Fibrin Degrad Prod, Qt D-Dimer Specimen Type Puncture Site Bicarbonate Actual ABG pH ABG pCO2 ABG pO2 ABG O2 Sat Calc/Mayur ABG O2 Content ABG Base Excess ABG Hematocrit ABG Hemoglobin ABG Oxyhemoglobin ABG Carboxyhemoglobin ABG Methemoglobin ABG Deoxyhemoglobin Flaco Test A-a O2 Gradient Ionized Calcium Mode of Support Mechanical Rate Inspired O2 Tidal Volume Pressure Support PEEP or CPAP Sodium 136 Potassium 4.2 Chloride 107 Carbon Dioxide 21 L Anion Gap 12 BUN 8 Creatinine 0.68 Estimated GFR (MDRD) Greater than 90 Glucose 96 POC Glucose Calcium 7.5 L Magnesium Total Bilirubin 0.8 AST 32 ALT 14 Alkaline Phosphatase 172 H Serum Total Protein 4.6 L Albumin 2.3 L Globulin 2.3 L Albumin/Globulin Ratio 1.0 L U Random Total Protein Urine Creatinine Syphilis IgG/IgM Ab Hep Bs Antigen Blood Type Antibody Screen Crossmatch FMR OB PN: A/P - Problem List (1) Pre-eclampsia Current Visit: Yes Status: Acute Code(s): O14.90 - UNSPECIFIED PRE-ECLAMPSIA , UNSPECIFIED TRIMESTER Qualifiers: Trimester: third trimester Qualified Code(s): O14.93 - Unspecified pre- eclampsia, third trimester (2) Gestational diabetes Current Visit: No Status: Acute Code(s): O24.419 - GESTATIONAL DIABETES MELLITUS IN , UNSP CONTROL Qualifiers: Gestational diabetes mellitus control: oral hypoglycemic-controlled Trimester: third trimester Qualified Code(s): O24.415 - Gestational diabetes mellitus in , controlled by oral hypoglycemic drugs (3) Genital herpes affecting Current Visit: No Status: Chronic Code(s): O98.319 - OTH INFECT W SEXL MODE OF TRANSMISS COMP PREG, UNSP TRI; A60.09 - HERPESVIRAL INFECTION OF OTHER UROGENITAL TRACT Qualifiers: Trimester: third trimester Qualified Code(s): O98.313 - Other infections with a predominantly sexual mode of transmission complicating , third trimester; A60.09 - Herpesviral infection of other urogenital tract (4) H/O section Current Visit: Yes Status: Acute Code(s): Z98.891 - HISTORY OF UTERINE SCAR FROM PREVIOUS SURGERY (5) Term delivered Current Visit: Yes Status: Acute Code(s): O80 - ENCOUNTER FOR FULL-TERM UNCOMPLICATED DELIVERY (6) Hemorrhagic shock Current Visit: Yes Status: Resolved Code(s): R57.8 - OTHER SHOCK (7) Acute blood loss anemia Current Visit: Yes Status: Acute Code(s): D62 - ACUTE POSTHEMORRHAGIC ANEMIA (8) hemorrhage Current Visit: Yes Status: Resolved Code(s): O72.1 - OTHER IMMEDIATE HEMORRHAGE (9) Pulmonary edema Current Visit: Yes Status: Acute Code(s): J81.1 - CHRONIC PULMONARY EDEMA Qualifiers: Chronicity: acute Qualified Code(s): J81.0 - Acute pulmonary edema (10) Hyperkalemia Current Visit: Yes Status: Resolved Code(s): E87.5 - HYPERKALEMIA (11) Blood transfusion affecting Current Visit: Yes Status: Acute Code(s): O99.89 - OTH DISEASES AND CONDITIONS COMPL PREG/CHLDBRTH (12) Hemoperitoneum Current Visit: Yes Status: Resolved Code(s): K66.1 - HEMOPERITONEUM Disposition: Term delivered PPD#1/POD#1 s/p rLTCS -Continue PNV -Encourage breast feeding once stabilized -Monitor lochia -Encourage ambulation once stabilized -Morphine prn pain, will change to norco once tolerating PO Hemorrhagic Shock, resolved 2/2 hemorrhage with hemoperitoneum POD#1 s/p ex-lap through pfannenstiel Pt s/p MTP with 1 round given (3U PRBC, 3U FFP) -R IJ CVC in place -vital signs stabilized -Continue to monitor H/H hemorrhage 2/2 hemoperitoneum No specific bleed identified, about 1500mL blood clot evacuated from abdomen. Total blood loss suspected to be about 2.5-3L. s/p 3U PRBC and 3U FFP as above -Monitor H/H -DIC panel if concern for continued bleeding Acute Hypoxic Respiratory Failure Was intubated overnight in the ICU -Dr. Davenport with pulm has been consulted, appreciate recs -Extubated this AM, will monitor for signs of respiratory distress Pre-eclampsia with severe features Pt with pre-eclampsia without severe features on admission as indication for 37 week delivery. Post-op from ex-lap through pfannenstiel pt developed severe range BP's with 3 > 160/110. She was subsequently started on magnesium. 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 Alegre who agrees with the above documentation and plan. Signature: Lexi Anand MD, PGY-3 Addendum - Attending - Attending Attestation Date/Time: 08/30/1914 I personally evaluated the patient and discussed the management with Dr. Anand I agree with the History, Examination, Assessment and Plan documented above with any addition or exceptions noted below. POD/PPD#1 Patient in ICU. Now extubated. On room air and doing well. Reports pain to abdomen along with distension. No n/v. No flatus or BM. Lochia minimum. s/p RLTCS #2 complicated by ex lap for pp hemorrhage: Improved. Continue routine pp care. pp hemorrhage s/p MTP: If H&H and coags stable ok to transfer to floor. s/p PEA?: Unsure if true arrest. Resolved without intervention. hx of wound complication: Continue wound vac. History of hematoma with dehiscence. hx of transfusion after lap jenn: Consider bleeding disorder workup in outpatient setting. preeclampsia with severe features: asymptomatic. on mag for 24 hours. BP stable. hx of primary HSV1 at 11 wks: No active lesions at delivery. Delivered via section. hx of MDD: high risk for pp depression post op ilius: NPO. Abdominal xray pending. No N/V. ABrayMD
[2019-08-30] MEDS: Morphine 2 MG/ML SYRINGE SLOW IVP PRN ×4 (07:26→15:00)
--- NOTE | 2019-08-30 08:03 | RAD ---
EXAM: Single view of the chest HISTORY: CCU patient on ventilator with respiratory failure COMPARISON: 08/29/2019 FINDINGS: Single view of the chest shows an enlarged but stable cardiomediastinal silhouette. The en dotracheal tube and central venous catheter are unchanged in position. There is been interval placement of an NG tube which courses off the inferior aspect of the film. There is no evidence of c onsolidation, mass, or pleural effusion. The bones are unremarkable. IMPRESSION: Appropriate position of lines and tubes
--- NOTE | 2019-08-30 08:22 | CON ---
DATE OF CONSULTATION: 08/30/2019 SERVICE: Pulmonary Medicine. REASON FOR CONSULTATION: ICU patient. HISTORY OF PRESENT ILLNESS: The patient is a 28-year-old female with past medical history significant for essentially nothing. That being said, she was and developed hypertension with preeclampsia. As such, she had a scheduled section at 9 o'clock yesterday morning. Throughout the course of the day, she dropped her blood pressures and became increasingly tachycardic. Because of that, a repeat hemoglobin was performed, which demonstrated significant drop. She was taken back to the operating room, and a little over 2 L of adrian blood was removed from her belly. No specific bleed was identified. She was watched for a period of time, and subsequently closed. She was rested on a mechanical ventilator overnight while the dust settled. She cannot provide any additional elements of the history. PAST MEDICAL HISTORY: HSV, genital. PAST SURGICAL HISTORY: 1. Cholecystectomy. 2. Appendectomy. 3. section x2. SOCIAL HISTORY: Negative for alcohol, tobacco, or illicit drug use. She is . FAMILY HISTORY: Noncontributory. ALLERGIES: PENICILLINS. MEDICATIONS: List of her inpatient medications was reviewed, and multiple updates were made at this time. REVIEW OF SYSTEMS: This cannot be obtained as the patient is currently intubated and sedated. PHYSICAL EXAMINATION: VITAL SIGNS: Afebrile, pulse 101, blood pressure 112/74, respirations 19, saturation 99% on 27% FiO2, delivered with a PEEP of 5. GENERAL: The patient is intubated. She is under the influence of some sedation. With stent stimulation, she wakes up appropriately. She is following commands and moving all 4 extremities. LABORATORY DATA: WBC 13.8, hemoglobin 7.8 and gently trickling downward. Platelets 123,000. INR 1.1. PH of 7.16, pCO2 of 43, pO2 of 127 while on a PEEP of 5 and a FiO2 of 50%. Basic metabolic profile is completely unremarkable this morning with a downward trending potassium of 4.2. Liver function studies have also improved including an alkaline phosphatase of 172. IMAGING DATA: Chest x-ray demonstrates likely pleural effusion on the right, which is layering. This gives the appearance that there is slight opacification on the right. Endotracheal tube is in good position, there is a right-sided IJ central venous catheter in the right atrium. An enteric catheter courses midline below the level of the diaphragm and out of the field of view. Low lung volumes accentuate the cardiac silhouette. ASSESSMENT: 1. Acute hypoxic respiratory failure. 2. Acute blood loss anemia. 3. Hemorrhagic shock, resolved. 4. Postoperative day #1 from section with subsequent exploratory laparotomy through the Pfannenstiel incision. DISCUSSION AND PLAN: I will put the patient on a spontaneous breathing trial. If she meets criteria, extubation will be considered. I am going to minimize her IV fluids now that her hyperkalemia has resolved. I will allow her to auto-diurese. We will start spacing out the hemoglobins through time as she has not had a significant pronounced drop overnight. Critical Care will sign off if she transfers to the floor. CRITICAL CARE TIME: 30 minutes. Job ID: [id number] MTDD
[2019-08-30] MEDS ORDERED: HYDROcodone/Acetaminophen 5/325 mg Tablet PO PRN (08:23)
[2019-08-30 08:54] LABS: Hemoglobin 7.6 g/dL (12.0-16.0)
[2019-08-30] MEDS: Prenatal Vitamin 1 TAB PO SCH (09:00)
[2019-08-30] MEDS: Docusate Calcium (SURFAK) 240 MG CAP PO SCH ×2 (09:36→21:54)
[2019-08-30] MEDS ORDERED: Adacel (T-DAP) 0.5 ML SYRINGE IM ONE (11:02)
[2019-08-30] MEDS ORDERED: Acetaminophen 500 MG TAB PO PRN (12:55)
[2019-08-30] MEDS ORDERED: Polyethylene Glycol 3350 17 GM Packet PO PRN (12:56)
[2019-08-30] MEDS ORDERED: Milk Of Magnesia 30 ML UDCUP PO PRN ×2 (12:56→16:22)
--- NOTE | 2019-08-30 13:04 | PDOC.BPN ---
Addendum entered and electronically signed by Lexi Anand MD 08/30/19 17:38: continue mag until 2199, error in time previously Original Note: <Lexi Anand - Last Filed: 08/30/19 13:01> - Brief Progress Note Mag check Pt denies H/A, vision changes, RUQ pain. She is reporting abdominal distension, denies flatus. Reports her pain is severe and only minimal improvement with morphine. Reports productive cough. O: UOP 50-70/hr in the past 4 hours 1+ reflexes, no clonus Abd - distended, tender to palpation A/P: severe pre-eclampsia -Continue mag until 1999 tonight. -Attempt to transfer to LDICU out of CCU while on mag -Continue mag checks Suspected Ileus -KUB -Bowel regimen -Bentyl <Pricila Alegre - Last Filed: 09/01/19 09:49> - Brief Progress Note Attending note: Continue mag. No s/sx of tox. No s/sx of preE. Consider 1 time dose of Lasix. BP stable. Continue post op care. Lakia
[2019-08-30] MEDS: Simethicone Chewable 80 MG TAB PO PRN ×2 (13:39→22:02)
[2019-08-30] MEDS: Dicyclomine 20 MG TAB PO SCH ×3 (13:44→22:03)
[2019-08-30] MEDS: Ibuprofen 800 MG TAB PO SCH ×2 (13:56→21:54)
[2019-08-30 14:10] LABS: Hemoglobin 7.5 g/dL (12.0-16.0)
[2019-08-30 15:05] LABS: PTT 27.1 SEC (22.9-36.1); Prothrombin Time 13.2 SEC (12.0-14.7)
--- NOTE | 2019-08-30 15:36 | RAD ---
EXAM: Single view of the abdomen HISTORY: Ileus COMPARISON: None FINDINGS: Single view of the abdomen shows a nonspecific, nonobstructive bowel gas pattern. Air is se en throughout the colon. No suspicious calcifications are seen. The bones are unremarkable. IMPRESSION: Nonobstructive bowel gas pattern.
--- NOTE | 2019-08-30 16:03 | PDOC.BPN ---
Addendum entered and electronically signed by Lexi Anand MD 08/30/19 17:38: Continue mag until 2199, error in time written. Original Note: <Terrence Lopez - Last Filed: 08/30/19 15:58> - Brief Progress Note Mag check Pt denies H/A, vision changes, RUQ pain. She is reporting abdominal distension, denies flatus. Reports her pain is imp. Reports productive cough. O: UOP 40-70/hr in the past 4 hours 2+ reflexes, no clonus Abd - distended, tender to palpation A/P: severe pre-eclampsia -Continue mag until 1999 tonight. -Attempt to transfer to LDICU out of CCU while on mag -H/H stable -Continue mag checks Suspected Ileus -KUB is negative for obstructive gas pattern, will continue supportive care. BS present -Bowel regimen -Bentyl <Pricila Alegre - Last Filed: 09/01/19 09:55> - Brief Progress Note Attending Note: Agree with above. Patient remains stable. Now on L&D. Continue mag ppx untill 2199. BP stable. No s/sx of tox. No s/sx of preE. MikeayMD
[2019-08-30 18:58] LABS: Prothrombin Time 13.3 SEC (12.0-14.7)
[2019-08-30 18:59] LABS: PTT 28.5 SEC (22.9-36.1)
--- NOTE | 2019-08-30 19:51 | PDOC.BPN ---
- Brief Progress Note Mag check Pt denies H/A, vision changes, RUQ pain. She is reporting abdominal distension, she was able to eat some jello, simethicone helped per her report O: U/O has been good per nursing staff, unsure of change since moving to L&D will f /u 2+ reflexes, no clonus Abd - distended, tender to palpation,soft A/P: severe pre-eclampsia -Continue mag until 1999 tonight. -H/H stable -Continue mag checks Suspected Ileus -KUB is negative for obstructive gas pattern, will continue supportive care. BS present -Bowel regimen -Bentyl
--- NOTE | 2019-08-30 22:41 | PDOC.BPN ---
- Brief Progress Note Mag stopped at 24 hours after it was started BP 135/78 Patient denies PHILLIPS, SOB, visual changes resting comfortably d/c'd morphine, advanced to regular diet Will leave yadav in as patient didn't feel confident she could walk to and from restroom andrés remove yadav in AM
[2019-08-31] MEDS: Simethicone Chewable 80 MG TAB PO PRN ×4 (03:10→21:47)
[2019-08-31] MEDS: HYDROcodone/Acetaminophen 7.5/325 mg Tablet PO PRN (03:36)
[2019-08-31 05:45] LABS: #Basophils 0.1 thou/uL (0.0-0.2); #Eosinphils 0.4 thou/uL (0.0-0.7); #Monocytes 0.9 thou/uL (0.11-0.59); #Neutrophils 11.5 thou/uL (1.40-6.50); %Basophils 0.7 % (0.0-1.0); %Eosinophils 2.6 % (0.0-10.0); %Lymphocytes 13.2 % (21.0-51.0); %Monocytes 6.1 % (0.0-10.0); %Neutrophils 77.4 % (42.0-75.0); Mean Corpuscular Hemoglobin 28.1 pg (27.0-31.0); Mean Corpuscular Volume 82.7 fL (78.0-98.0); Mean Platelet Volume 10.9 fL (7.4-10.4); Platelet Count 145 thou/uL (130-400); RBC Distribution Width 15.9 % (11.5-14.5); Red Blood Cell (RBC) Count 2.49 mill/uL (4.20-5.40); White Blood Cell (WBC) Count 14.9 thou/uL (4.8-10.8)
[2019-08-31 06:07] LABS: ALT (SGPT) 12 U/L (8-55); AST (SGOT) 26 U/L (5-34); Albumin 2.6 g/dL (3.5-5.0); Alkaline Phosphatase 178 U/L (40-110); Anion Gap 11 mmol/L (10-20); BUN (Urea Nitrogen) 6 mg/dL (7.0-18.7); Bilirubin, Total 0.5 mg/dL (0.2-1.2); Calc. Creatinine Clearance 199 mL/min (70-130); Calcium 7.7 mg/dL (7.8-10.44); Carbon Dioxide 23 mmol/L (22-29); Chloride 107 mmol/L (98-107); Estimated GFR-MDRD Greater than 90; Globulin 2.7 g/dL (2.4-3.5); Glucose 102 mg/dL (70-105); Potassium 3.9 mmol/L (3.5-5.1); Protein, Total 5.3 g/dL (6.0-8.3); Sodium 137 mmol/L (136-145)
[2019-08-31] MEDS: Ibuprofen 800 MG TAB PO SCH ×3 (06:09→21:44)
--- NOTE | 2019-08-31 06:32 | PDOC.OBPPN ---
FMR OB PN: Subj - Interval History Day: 2, POD#2 s/p rLTCS and subsequent wound exploration 28 y/o ->2012 @ 37.1 WGA delivered via rLTCS @ 0817 on 08/29. Pt doing well this morning. She has gotten up twice overnight. Villasenor was removed this AM, but she has not voided yet. She denies any SOB or chest pain, but does have a cough. She reports abdominal pain that she feels like is gas pain. Denies flatus. Minimal lochia. Denies N/V/F/C. FMR OB PN: Obj - Maternal Vital signs: BP: 157/78 HR: 116 RR: 18 Tmax: 98.7 Pox: 99% on RA Wt: 100kg - Urine output I&O: 08/29/19 08/30/19 08/31/19 06:59 06:59 06:59 Intake Total 6095 1360 Output Total 2170 730 Balance 3925 630 FMR OB PN: Exam - Physical Exam General: NAD, awake, alert and oriented HEENT: MMM, conjunctiva clear, grossly normal vision, grossly normal hearing Neck: supple Deviation from normal: tachycardic, regular rhythm, no murmurs, trace edema BLE General: CTAB, no respiratory distress Deviation from normal: distended, soft, TTP Musculoskeletal: pulses present, FROM in all four extremities Neurological: no clonus, no focal deficit Skin: good tugor, capillary refill <2 seconds : bandage intact (wound vac in place) Lymphatic: no unusual bruising or bleeding, no purpura Psychiatric: intact recent and remote memory, good judgement and insight FMR OB PN: Data - Labs Lab results: Laboratory Results - last 24 hr 08/30/19 08/30/19 08/30/19 08:10 08:13 11:58 WBC RBC Hgb 7.6 L Hct 22.2 L MCV MCH MCHC RDW Plt Count MPV Neutrophils % Lymphocytes % Monocytes % Eosinophils % Basophils % Neutrophils # Lymphocytes # Monocytes # Eosinophils # Basophils # PT INR APTT Sodium Potassium Chloride Carbon Dioxide Anion Gap BUN Creatinine Estimated GFR (MDRD) Glucose POC Glucose 131 H Calcium Total Bilirubin AST ALT Alkaline Phosphatase B-Natriuretic Peptide 20.3 Serum Total Protein Albumin Globulin Albumin/Globulin Ratio 08/30/19 08/30/19 08/30/19 14:00 14:40 17:58 WBC RBC Hgb 7.5 L Hct 23.2 L MCV MCH MCHC RDW Plt Count MPV Neutrophils % Lymphocytes % Monocytes % Eosinophils % Basophils % Neutrophils # Lymphocytes # Monocytes # Eosinophils # Basophils # PT 13.2 INR 1.0 APTT 27.1 Sodium Potassium Chloride Carbon Dioxide Anion Gap BUN Creatinine Estimated GFR (MDRD) Glucose POC Glucose 127 H Calcium Total Bilirubin AST ALT Alkaline Phosphatase B-Natriuretic Peptide Serum Total Protein Albumin Globulin Albumin/Globulin Ratio 08/30/19 08/31/19 08/31/19 18:32 05:31 05:31 WBC 14.9 H RBC 2.49 L Hgb 7.0 L Hct 20.6 L MCV 82.7 MCH 28.1 MCHC 34.0 RDW 15.9 H Plt Count 145 MPV 10.9 H Neutrophils % 77.4 H Lymphocytes % 13.2 L Monocytes % 6.1 Eosinophils % 2.6 Basophils % 0.7 Neutrophils # 11.5 H Lymphocytes # 2.0 Monocytes # 0.9 H Eosinophils # 0.4 Basophils # 0.1 PT 13.3 INR 1.0 APTT 28.5 Sodium 137 Potassium 3.9 Chloride 107 Carbon Dioxide 23 Anion Gap 11 BUN 6 L Creatinine 0.67 Estimated GFR (MDRD) Greater than 90 Glucose 102 POC Glucose Calcium 7.7 L Total Bilirubin 0.5 AST 26 ALT 12 Alkaline Phosphatase 178 H B-Natriuretic Peptide Serum Total Protein 5.3 L Albumin 2.6 L Globulin 2.7 Albumin/Globulin Ratio 1.0 L FMR OB PN: A/P - Problem List (1) Pre-eclampsia Current Visit: Yes Status: Acute Code(s): O14.90 - UNSPECIFIED PRE-ECLAMPSIA , UNSPECIFIED TRIMESTER Qualifiers: Trimester: third trimester Qualified Code(s): O14.93 - Unspecified pre- eclampsia, third trimester (2) Gestational diabetes Current Visit: No Status: Acute Code(s): O24.419 - GESTATIONAL DIABETES MELLITUS IN , UNSP CONTROL Qualifiers: Gestational diabetes mellitus control: oral hypoglycemic-controlled Trimester: third trimester Qualified Code(s): O24.415 - Gestational diabetes mellitus in , controlled by oral hypoglycemic drugs (3) Genital herpes affecting Current Visit: No Status: Chronic Code(s): O98.319 - OTH INFECT W SEXL MODE OF TRANSMISS COMP PREG, UNSP TRI; A60.09 - HERPESVIRAL INFECTION OF OTHER UROGENITAL TRACT Qualifiers: Trimester: third trimester Qualified Code(s): O98.313 - Other infections with a predominantly sexual mode of transmission complicating , third trimester; A60.09 - Herpesviral infection of other urogenital tract (4) H/O section Current Visit: Yes Status: Acute Code(s): Z98.891 - HISTORY OF UTERINE SCAR FROM PREVIOUS SURGERY (5) Term delivered Current Visit: Yes Status: Acute Code(s): O80 - ENCOUNTER FOR FULL-TERM UNCOMPLICATED DELIVERY (6) Hemorrhagic shock Current Visit: Yes Status: Resolved Code(s): R57.8 - OTHER SHOCK (7) Acute blood loss anemia Current Visit: Yes Status: Acute Code(s): D62 - ACUTE POSTHEMORRHAGIC ANEMIA (8) hemorrhage Current Visit: Yes Status: Resolved Code(s): O72.1 - OTHER IMMEDIATE HEMORRHAGE (9) Pulmonary edema Current Visit: Yes Status: Acute Code(s): J81.1 - CHRONIC PULMONARY EDEMA Qualifiers: Chronicity: acute Qualified Code(s): J81.0 - Acute pulmonary edema (10) Hyperkalemia Current Visit: Yes Status: Resolved Code(s): E87.5 - HYPERKALEMIA (11) Blood transfusion affecting Current Visit: Yes Status: Acute Code(s): O99.89 - OTH DISEASES AND CONDITIONS COMPL PREG/CHLDBRTH (12) Hemoperitoneum Current Visit: Yes Status: Resolved Code(s): K66.1 - HEMOPERITONEUM Disposition: Term delivered PPD#2/POD#2 s/p rLTCS -Continue PNV -Encourage breast feeding once able -Monitor lochia -Encourage ambulation -Ibuprofen for pain - considering vasectomy for contraception Hemorrhagic Shock, resolved 2/2 hemorrhage with hemoperitoneum POD#2 s/p ex-lap through pfannenstiel Pt s/p MTP with 1 round given (3U PRBC, 3U FFP) -R IJ CVC in place, will remove today -vital signs stabilized -Continue to monitor H/H hemorrhage 2/2 hemoperitoneum No specific bleed identified, about 1500mL blood clot evacuated from abdomen. Total blood loss suspected to be about 2.5-3L. s/p 3U PRBC and 3U FFP as above -Monitor H/H -DIC panel if concern for continued bleeding Pre-eclampsia with severe features Pt with pre-eclampsia without severe features on admission as indication for 37 week delivery. Post-op from ex-lap through pfannenstiel pt developed severe range BP's with 3 > 160/110. She was subsequently placed on magnesium for 24 hours. This has now been stopped. -Monitor BP's Acute Blood Loss Anemia Pt Hb slowly downtrending, is 7.0 today s/p 3U PRBC -Continue to trend -Consider blood transfusion if pt symptomatic Pulmonary Edema Pt with pulmonary edema on CXR on 08/30. BNP WNL. 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 Alegre who agrees with the above documentation and plan. Signature: Lexi Anand MD, PGY-3 Addendum - Attending - Attending Attestation Date/Time: 08/31/19 0950 I personally evaluated the patient and discussed the management with Dr. Anand I agree with the History, Examination, Assessment and Plan documented above with any addition or exceptions noted below. POD/PPD#2 Patient now on pp. Reports improvements in symptoms and bowel function. Now passing gas. Has had 2 BMs. Still very distended and uncomfortable. Minimal bleeding. s/p RLTCS #2 complicated by ex lap for pp hemorrhage: Stable. Continue routine pp care. pp hemorrhage s/p MTP: Stable. Hem remains 7. Discussed options. Minimal symptoms. Offered iron infusion. s/p PEA?: Unsure if true arrest. Resolved with minimal intervention. hx of wound complication: Continue wound vac. History of hematoma with dehiscence. hx of transfusion after lap jenn: Consider bleeding disorder workup in outpatient setting. preeclampsia with severe features: Remains asymptomatic. s/p mag ppx for 24 hours. Labs stable. BP stable and normotensive. hx of primary HSV1 at 11 wks: No active lesions at delivery. Delivered via section. hx of MDD: high risk for pp depression post op ilius: Advance slowly. Bowel just now starting to wake up. Patient with lots of discomfort. Encourage ambulation today. [email or web address]
[2019-08-31] MEDS ORDERED: Lactated Ringer's 1,000 ML IV SCH (06:40)
--- NOTE | 2019-08-31 07:11 | CON ---
DATE OF CONSULTATION: 08/29/2019 Intraoperative consultation and procedure note. CONSULTING PHYSICIAN: Kike Gee MD REASON FOR CONSULTATION: Intraabdominal bleeding, hemodynamic instability. HISTORY: The patient is a 28-year-old female. She had presented earlier that day for a section, which had been performed per the [facility]. She apparently had some degree of instability throughout the day and in the evening of her , she was returned to the operating room for exploration and she was found to have progressive hemodynamic instability. I was summoned urgently to the operating room. When I arrived, Dr. Gee had the patient's Pfannenstiel operation and exploring the patient's abdomen along with Dr. Villegas. There appeared to be a large volume of clot within the abdomen. A large amount of blood had already been aspirated. There was no evidence of ongoing bleeding. Although, I did not scrub into the operation, I was present and observing the procedure. At the point that it is deemed that there was no substantial value to my presence within the operation, I turned my attention to her resuscitation. Dr. Saez had attempted to place a right subclavian central line without success. I was requested to obtain central venous access. PROCEDURE: Right internal jugular 7-Moldovan triple-lumen central line placement. ANESTHESIA: None. INDICATIONS: As above. DESCRIPTION OF PROCEDURE: The patient was placed in Trendelenburg position. Her head was turned to the left. She appears to be substantially obese limiting access to her neck. The area was prepped extensively with ChloraPrep and draped in sterile fashion. A large gauge needle was advanced into the right lateral neck in the anticipated location of the internal jugular vein. My initial puncture was into the right carotid artery. Upon recognition of this, the needle was removed and pressure was held. My next pass found the right internal jugular vein. Guidewire was passed through the needle. Needle was removed, skin was incised, tract was dilated, and 7-Moldovan triple-lumen catheter was advanced over the wire without difficulty. Each of the three lumens aspirated blood freely and was flushed with heparinized saline. The catheter was secured at skin exit site with 3-0 silk suture. Sterile occlusive dressing was applied. The catheter appeared to be in satisfactory position, although a chest x-ray will need to be obtained in the recovery room. The patient appeared to be stabilizing and her care was left in the hands of her family practice doctor. Job ID: [id number] MTDD
[2019-08-31] MEDS: Prenatal Vitamin 1 TAB PO SCH (08:46)
[2019-08-31] MEDS: Polyethylene Glycol 3350 17 GM Packet PO SCH (08:47)
[2019-08-31] MEDS: Docusate Calcium (SURFAK) 240 MG CAP PO SCH ×2 (08:47→21:44)
[2019-08-31] MEDS: Dicyclomine 20 MG TAB PO SCH ×4 (11:29→21:46)
[2019-08-31] MEDS ORDERED: Acetaminophen 500 MG TAB PO SCH (16:45)
[2019-08-31] MEDS ORDERED: Iron Sucrose Complex 500 MG in Sodium Chloride 0.9% 250 ML 250 ML IVPB SCH (16:45)
[2019-09-01] MEDS: Ibuprofen 800 MG TAB PO SCH ×3 (05:54→21:29)
--- NOTE | 2019-09-01 09:13 | PDOC.OBPPN ---
FMR OB PN: Subj - Interval History Day: 3, POD#3 s/p rLTCS and subsequent wound exploration 28 y/o ->2011 @ 37.1 WGA delivered via rLTCS @ 0817 on 08/29. Pt doing well this morning. She has been up walking around in the room and the halls. She endorses flatus and BM's. Voiding without difficulty She denies any SOB or chest pain, but does still have a cough. She reports abdominal pain that she feels like is gas pain, but has improved. Minimal lochia. Denies N/V/F/C. FMR OB PN: Obj - Maternal Vital signs: BP: 140/80 HR: 91 RR: 16 Tmax: 98.6 Pox: 99% on RA Wt: 100kg - Urine output I&O: 08/31/19 09/01/19 09/02/19 06:59 06:59 06:59 Intake Total 1360 1040 Output Total 730 1950 Balance 630 -910 FMR OB PN: Exam - Physical Exam General: NAD, awake, alert and oriented HEENT: normocephalic and atraumatic, MMM, conjunctiva clear, grossly normal vision, grossly normal hearing Neck: supple, no LAD Heart: RRR, normal S1/S2, pulses present, other (trace edema) General: CTAB, no respiratory distress Abdomen: soft, fundus(cm) (firm), bowel sound present Musculoskeletal: normal gait and station, pulses present Neurological: no clonus, no focal deficit Skin: good tugor, capillary refill <2 seconds : bandage intact (wound vac in place) Lymphatic: no unusual bruising or bleeding, no purpura Psychiatric: intact recent and remote memory, good judgement and insight FMR OB PN: Data - Labs Lab results: Laboratory Results - last 24 hr 08/31/19 08/31/19 08/31/19 11:42 16:34 20:15 POC Glucose 105 92 106 FMR OB PN: A/P - Problem List (1) Pre-eclampsia Current Visit: Yes Status: Acute Code(s): O14.90 - UNSPECIFIED PRE-ECLAMPSIA , UNSPECIFIED TRIMESTER Qualifiers: Trimester: third trimester Qualified Code(s): O14.93 - Unspecified pre- eclampsia, third trimester (2) Gestational diabetes Current Visit: No Status: Acute Code(s): O24.419 - GESTATIONAL DIABETES MELLITUS IN , UNSP CONTROL Qualifiers: Gestational diabetes mellitus control: oral hypoglycemic-controlled Trimester: third trimester Qualified Code(s): O24.415 - Gestational diabetes mellitus in , controlled by oral hypoglycemic drugs (3) Genital herpes affecting Current Visit: No Status: Chronic Code(s): O98.319 - OTH INFECT W SEXL MODE OF TRANSMISS COMP PREG, UNSP TRI; A60.09 - HERPESVIRAL INFECTION OF OTHER UROGENITAL TRACT Qualifiers: Trimester: third trimester Qualified Code(s): O98.313 - Other infections with a predominantly sexual mode of transmission complicating , third trimester; A60.09 - Herpesviral infection of other urogenital tract (4) H/O section Current Visit: Yes Status: Acute Code(s): Z98.891 - HISTORY OF UTERINE SCAR FROM PREVIOUS SURGERY (5) Term delivered Current Visit: Yes Status: Acute Code(s): O80 - ENCOUNTER FOR FULL-TERM UNCOMPLICATED DELIVERY (6) Hemorrhagic shock Current Visit: Yes Status: Resolved Code(s): R57.8 - OTHER SHOCK (7) Acute blood loss anemia Current Visit: Yes Status: Acute Code(s): D62 - ACUTE POSTHEMORRHAGIC ANEMIA (8) hemorrhage Current Visit: Yes Status: Resolved Code(s): O72.1 - OTHER IMMEDIATE HEMORRHAGE (9) Pulmonary edema Current Visit: Yes Status: Acute Code(s): J81.1 - CHRONIC PULMONARY EDEMA Qualifiers: Chronicity: acute Qualified Code(s): J81.0 - Acute pulmonary edema (10) Hyperkalemia Current Visit: Yes Status: Resolved Code(s): E87.5 - HYPERKALEMIA (11) Blood transfusion affecting Current Visit: Yes Status: Acute Code(s): O99.89 - OTH DISEASES AND CONDITIONS COMPL PREG/CHLDBRTH (12) Hemoperitoneum Current Visit: Yes Status: Resolved Code(s): K66.1 - HEMOPERITONEUM Disposition: Term delivered PPD#3/POD#3 s/p rLTCS -Continue PNV -Encourage breast feeding once able -Monitor lochia -Encourage ambulation -Ibuprofen for pain - considering vasectomy for contraception Hemorrhagic Shock, resolved 2/2 hemorrhage with hemoperitoneum POD#3 s/p ex-lap through pfannenstiel Pt s/p MTP with 1 round given (3U PRBC, 3U FFP) -R IJ CVC in place, will remove today -vital signs stabilized hemorrhage 2/2 hemoperitoneum No specific bleed identified, about 1500mL blood clot evacuated from abdomen. Total blood loss suspected to be about 2.5-3L. s/p 3U PRBC and 3U FFP as above -Vital signs stable Pre-eclampsia with severe features Pt with pre-eclampsia without severe features on admission as indication for 37 week delivery. Post-op from ex-lap through pfannenstiel pt developed severe range BP's with 3 > 160/110. She was subsequently placed on magnesium for 24 hours. This has now been stopped. -Monitor BP's Acute Blood Loss Anemia Pt Hb slowly downtrending, is 7.0 yesterday s/p 3U PRBC during her operations and iron infusion yesterday -Continue to trend -Consider blood transfusion if pt symptomatic Pulmonary Edema Pt with pulmonary edema on CXR on 08/30. BNP WNL. 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 Suárez who agrees with the above documentation and plan. Signature: Lexi Anand MD, PGY-3 Addendum - Attending - Attending Attestation Date/Time: 09/01/19 1312 I personally evaluated the patient and discussed the management with Dr. Anand I agree with the History, Examination, Assessment and Plan documented above with any addition or exceptions noted below - Patient without complaints. Ambulating. Tolerating po. Pain well controlled. Afebrile VSS A/P: 1) POD#3 s/p repeat and subsequent re-exploration- Continue current care; continue advancing diet. 2) Pre-eclampsia with severe features - BP within normal limits. Anticipate d/c home tomorrow.
[2019-09-01] MEDS: Docusate Calcium (SURFAK) 240 MG CAP PO SCH ×2 (09:23→21:29)
[2019-09-01] MEDS: Prenatal Vitamin 1 TAB PO SCH (09:23)
[2019-09-01] MEDS: Polyethylene Glycol 3350 17 GM Packet PO SCH (09:24)
[2019-09-01] MEDS: Dicyclomine 20 MG TAB PO SCH ×4 (09:27→21:29)
[2019-09-01] MEDS: Simethicone Chewable 80 MG TAB PO PRN ×2 (09:34→19:51)
[2019-09-01] MEDS: HYDROcodone/Acetaminophen 7.5/325 mg Tablet PO PRN ×3 (13:45→22:02)
[2019-09-02] MEDS: HYDROcodone/Acetaminophen 7.5/325 mg Tablet PO PRN ×2 (02:47→09:45)
[2019-09-02] MEDS: Ibuprofen 800 MG TAB PO SCH (05:40)
[2019-09-02] MEDS: Simethicone Chewable 80 MG TAB PO PRN (05:42)
--- NOTE | 2019-09-02 07:24 | PDOC.OBPPN ---
FMR OB PN: Subj - Interval History Day: 4, POD#4 s/p rLTCS and subsequent wound exploration 28 y/o ->2010 @ 37.1 WGA delivered via rLTCS @ 0817 on 08/29. Patient doing well. Voiding and stooling. Ambulating in the hallways. Tolerating PO. Pain appropriate post-op pain with minimal lochia. Denies H/A, vision changes, SOB. FMR OB PN: Obj - Maternal Vital signs: BP: 134/75 HR: 96 RR: 16 Tmax: 98.1 Pox: 98% on RA Wt: 100kg - Urine output I&O: 09/01/19 09/02/19 09/03/19 06:59 06:59 06:59 Intake Total 1040 Output Total 1950 Balance -910 FMR OB PN: Exam - Physical Exam General: NAD, awake, alert and oriented HEENT: MMM, conjunctiva clear, grossly normal vision, grossly normal hearing Neck: supple, FROM Heart: RRR, normal S1/S2, no murmurs/rubs/gallops, pulses present, no edema General: CTAB, no respiratory distress, good air movement, no wheezing Abdomen: soft, fundus(cm) (firm) Neurological: no focal deficit Skin: good tugor, capillary refill <2 seconds : bandage intact (wound vac in place), appropriately tender Psychiatric: intact recent and remote memory, good judgement and insight FMR OB PN: Data - Labs Lab results: Laboratory Results - last 24 hr 08/29/19 09/01/19 06:50 18:45 POC Glucose 106 Crossmatch See Detail FMR OB PN: A/P - Problem List (1) Pre-eclampsia Current Visit: Yes Status: Resolved Code(s): O14.90 - UNSPECIFIED PRE- ECLAMPSIA, UNSPECIFIED TRIMESTER Qualifiers: Trimester: third trimester Qualified Code(s): O14.93 - Unspecified pre- eclampsia, third trimester (2) Genital herpes affecting Current Visit: No Status: Chronic Code(s): O98.319 - OTH INFECT W SEXL MODE OF TRANSMISS COMP PREG, UNSP TRI; A60.09 - HERPESVIRAL INFECTION OF OTHER UROGENITAL TRACT Qualifiers: Trimester: third trimester Qualified Code(s): O98.313 - Other infections with a predominantly sexual mode of transmission complicating , third trimester; A60.09 - Herpesviral infection of other urogenital tract (3) H/O section Current Visit: Yes Status: Acute Code(s): Z98.891 - HISTORY OF UTERINE SCAR FROM PREVIOUS SURGERY (4) Term delivered Current Visit: Yes Status: Acute Code(s): O80 - ENCOUNTER FOR FULL-TERM UNCOMPLICATED DELIVERY (5) Hemorrhagic shock Current Visit: Yes Status: Resolved Code(s): R57.8 - OTHER SHOCK (6) Acute blood loss anemia Current Visit: Yes Status: Acute Code(s): D62 - ACUTE POSTHEMORRHAGIC ANEMIA (7) hemorrhage Current Visit: Yes Status: Resolved Code(s): O72.1 - OTHER IMMEDIATE HEMORRHAGE (8) Pulmonary edema Current Visit: Yes Status: Acute Code(s): J81.1 - CHRONIC PULMONARY EDEMA Qualifiers: Chronicity: acute Qualified Code(s): J81.0 - Acute pulmonary edema (9) Hyperkalemia Current Visit: Yes Status: Resolved Code(s): E87.5 - HYPERKALEMIA (10) Blood transfusion affecting Current Visit: Yes Status: Acute Code(s): O99.89 - OTH DISEASES AND CONDITIONS COMPL PREG/CHLDBRTH (11) Hemoperitoneum Current Visit: Yes Status: Resolved Code(s): K66.1 - HEMOPERITONEUM Disposition: Term delivered PPD#4/POD#4 s/p rLTCS -Continue PNV -Encourage breast feeding once able -Monitor lochia -Encourage ambulation -Ibuprofen and norco for pain - considering vasectomy for contraception Hemorrhagic Shock, resolved 2/2 hemorrhage with hemoperitoneum POD#4 s/p ex-lap through pfannenstiel Pt s/p MTP with 1 round given (3U PRBC, 3U FFP) -vital signs stabilized hemorrhage 2/2 hemoperitoneum No specific bleed identified, about 1500mL blood clot evacuated from abdomen. Total blood loss suspected to be about 2.5-3L. s/p 3U PRBC and 3U FFP as above -Vital signs stable Pre-eclampsia with severe features Pt with pre-eclampsia without severe features on admission as indication for 37 week delivery. Post-op from ex-lap through pfannenstiel pt developed severe range BP's with 3 > 160/110. She was subsequently placed on magnesium for 24 hours. This has now been stopped. -Monitor BP's Acute Blood Loss Anemia Hb 7.0 s/p 3U PRBC during her operations and iron infusion -Monitor Pulmonary Edema, resolved Pt with pulmonary edema on CXR on 08/30. BNP WNL. 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 for staple removal Discussion: Date/Time: 09/02/19 8048 This H&P was discussed with Dr. Suárez who agrees with the above documentation and plan. Signature: Lexi Anand MD, PGY-3 Addendum - Attending - Attending Attestation Date/Time: 09/02/19 1329 I personally evaluated the patient and discussed the management with Dr. Anand I agree with the History, Examination, Assessment and Plan documented above with any addition or exceptions noted below - Patient without complaints. Tolerating diet. Ambulating. Afebrile VSS. Incision- wound vac in place. A/P: 1 ) POD#5 s/p repeat with re-exploration- doing well. Plan to d/c home today. F/u on Tuesday for wound check and staple removal.
[2019-09-02] MEDS: Polyethylene Glycol 3350 17 GM Packet PO SCH (09:44)
[2019-09-02] MEDS: Dicyclomine 20 MG TAB PO SCH (09:44)
[2019-09-02] MEDS: Prenatal Vitamin 1 TAB PO SCH (09:44)
[2019-09-02] MEDS: Docusate Calcium (SURFAK) 240 MG CAP PO SCH (09:45)
[2019-09-02 16:33] VITALS: BP 147/89; TEMP 98.7
--- NOTE | 2019-09-04 09:48 | EKG ---
Test Reason : Blood Pressure : / mmHG Vent. Rate : 138 BPM Atrial Rate : 138 BPM P-R Int : 124 ms QRS Dur : 070 ms QT Int : 282 ms P-R-T Axes : 046 103 021 degrees QTc Int : 427 ms Sinus tachycardia Rightward axis Borderline ECG When compared with ECG of 17-APR-2019 18:22, T wave amplitude has increased in Anterior leads Confirmed by FRANCISCO RASHEED (2) on 09/04/2019 9:48:11 AM Referred By: CHUCK *R Confirmed By:FRANCISCO RASHEED
--- NOTE | 2019-09-04 10:13 | EKG ---
Test Reason : T WAVE CHANGE Blood Pressure : / mmHG Vent. Rate : 089 BPM Atrial Rate : 089 BPM P-R Int : 152 ms QRS Dur : 076 ms QT Int : 342 ms P-R-T Axes : 035 058 040 degrees QTc Int : 416 ms Normal sinus rhythm Normal ECG When compared with ECG of 29-AUG-2019 14:52, (Unconfirmed) Vent. rate has decreased BY 49 BPM Confirmed by FRANCISCO RASHEED (2) on 09/04/2019 10:12:37 AM Referred By: BRENT Confirmed By:FRANCISCO RASHEED
== END 2019-09-02 16:05 | disposition home or self-care (01) | DRG 786 ==
LOC: L&D 05:27 → 3SE 11:58 → CCU 21:03 → L&D 08-30 19:00 → 3SE 08-31 08:13
PROVIDERS: ADMIT Student in an Organized Health Care Education/Training Program; ATTEND Student in an Organized Health Care Education/Training Program
PROC: 10D00Z1 Extraction of Products of Conception, Low, Open Approach (ICD-10-PCS; principal; 2019-08-29)
PROC: 0WCG0ZZ Extirpation of Matter from Peritoneal Cavity, Open Approach (ICD-10-PCS; 2019-08-29)
PROC: 30233N1 Transfusion of Nonautologous Red Blood Cells into Peripheral Vein, Percutaneous Approach (ICD-10-PCS; 2019-08-29)
PROC: 02HV33Z Insertion of Infusion Device into Superior Vena Cava, Percutaneous Approach (ICD-10-PCS; 2019-08-31)
DX: O34.211 Maternal care for low transverse scar from previous cesarean delivery (principal); K66.1 Hemoperitoneum; O75.1 Shock during or following labor and delivery; J96.21 Acute and chronic respiratory failure with hypoxia; J81.0 Acute pulmonary edema; O98.52 Other viral diseases complicating childbirth; O72.1 Other immediate postpartum hemorrhage; D62 Acute posthemorrhagic anemia; K56.7 Ileus, unspecified; O14.94 Unspecified pre-eclampsia, complicating childbirth; O99.214 Obesity complicating childbirth; E66.9 Obesity, unspecified; O13.4 Gestational [pregnancy-induced] hypertension without significant proteinuria, complicating childbirth; O24.425 Gestational diabetes mellitus in childbirth, controlled by oral hypoglycemic drugs; Z3A.37 37 weeks gestation of pregnancy; Z37.0 Single live birth; O99.53 Diseases of the respiratory system complicating the puerperium; O90.81 Anemia of the puerperium; O99.63 Diseases of the digestive system complicating the puerperium; O99.285 Endocrine, nutritional and metabolic diseases complicating the puerperium; E87.5 Hyperkalemia; O14.15 Severe pre-eclampsia, complicating the puerperium; Z90.49 Acquired absence of other specified parts of digestive tract; A60.00 Herpesviral infection of urogenital system, unspecified; Z88.0 Allergy status to penicillin; F32.9 Major depressive disorder, single episode, unspecified; O99.344 Other mental disorders complicating childbirth
CPT/HCPCS: 36415; 36416; 36430; 51702; 71045; 74018; 74177; 80053; 82570; 82805; 83735; 83880; 84156; 85025; 85027; 85049; 85300; 85362; 85379; 85384; 85610; 85730; 86780; 86850; 86900; 86901; 87340; 88307; 93005; 93010; 94002; 94003; J0171; J1756; J1885; J2250; J2270; J2274; J2370; J2405; J2590; J2704; J2765; J3010; J3475; J3490; J7050; J7070; P9016; P9059; Q9967; S0028